=== PATIENT | female | born 1965 | race Hispanic/Latino ===

== ENCOUNTER 2017-01-02 09:31 | Day surgery (SDC) | payer BC ==
[2017-01-02] MEDS ORDERED: Iohexol 350mgl/ml 50 ML ONE (09:40)
[2017-01-02] MEDS ORDERED: Iodixanol 320 mg/ml 150 ml Bottle IV ONE (09:40)
[2017-01-02] MEDS ORDERED: Lidocaine 2% Inj (20ml) ONE (09:40)
--- NOTE | 2017-01-02 09:55 | ED PDOC ---
Arrival/HPI - General Chief Complaint: Chest Pain Time Seen by Provider: 01/02/17 09:35 Historian: Patient - History of Present Illness Narrative History of Present Illness (Text): 01/02/17 09:42 Andres Alexandra is a 51 year old female, whose past medical history includes hypertension, CAD, DC, and code heart with angioplasty 3 yrs ago, who presents to the emergency department complaining of hypotension during stress test prior to arrival. Patient was undergoing her annual stress test when patient says she began to breath heavily while walking fast and her blood pressure dropped. Patient was sent to the emergency department for further evaluation. At present , patient is slightly dizzy but denies any chest pain or any other complaints at this time. Patient endorses that she is a former smoker. PMD: Dr. Jamison Prosthetic Technician: Dr. Rowell Time/Duration: Prior to Arrival Symptom Onset: Sudden Symptom Course: Improving Severity Level: Mild Activities at Onset: Significant (Routine Stress test) Context: Other (Cardologist's office) Past Medical History - Provider Review Nursing Documentation Reviewed: Yes - Reproductive Menopause: Yes - Cardiac Hx Cardiac Disorders: (DC 01/24/13) Hx Congestive Heart Failure: Yes (01/24/13) Hx DC: Yes Hx Hypertension: Yes - Musculoskeletal/Rheumatological Hx Falls: No - Psychiatric Hx Anxiety: Yes Hx Substance Use: No - Past Surgical History Past Surgical History: No Previous - Surgical History Hx Cardiac Catheterization: Yes (01/24/13) Hx Coronary Stent: Yes (x2 01/24/13) Other/Comment: Gastric sleeve surgery approximately 1 year ago. - Anesthesia Hx Anesthesia: Yes Hx Anesthesia Reactions: No Hx Malignant Hyperthermia: No - Suicidal Assessment Feels Threatened In Home Enviroment: No Family/Social History - Physician Review Nursing Documentation Reviewed: Yes Family/Social History: No Known Family HX Smoking Status: Smoker Currrent Status Unknown Hx Alcohol Use: No Hx Substance Use: No Hx Substance Use Treatment: No Allergies/Home Meds Allergies/Adverse Reactions: Allergies acetaminophen [From Percocet] Allergy (Verified 01/02/17 09:40) RASH coconut Allergy (Verified 01/02/17 09:40) ANGIOEDEMA meperidine HCl [From Demerol] Allergy (Verified 01/02/17 09:40) RASH oxycodone HCl [From Percocet] Allergy (Verified 01/02/17 09:40) RASH strawberry Allergy (Verified 01/02/17 09:40) ANGIOEDEMA Home Medications: Home Meds Medication Instructions Recorded Confirmed Aspirin [Ecotrin] 325 mg PO DAILY 12/05/15 01/02/17 Atorvastatin Calcium [Lipitor] 40 mg PO HS 12/05/15 01/02/17 Carvedilol [Coreg] 6.25 mg PO AMHS 12/05/15 01/02/17 Prasugrel HCl [Effient] 10 mg PO DAILY 01/01/16 01/02/17 Lansoprazole [Prevacid] 30 mg PO DAILY 01/02/17 01/02/17 Review of Systems - Review of Systems Constitutional: Other (hypotension). absent: Fevers Eyes: absent: Vision Changes ENT: absent: Hearing Changes Cardiovascular: absent: Chest Pain Gastrointestinal: absent: Abdominal Pain Genitourinary Female: absent: Dysuria, Urine Output Changes Musculoskeletal: absent: Arthralgias Neurological: absent: Headache, Dizziness Endocrine: absent: Diaphoresis Hemo/Lymphatic: absent: Adenopathy Psychiatric: absent: Depression Physical Exam Vital Signs Reviewed: Yes Vital Signs Temp Pulse Pulse Resp BP Pulse Ox 01/02/17 09:33 62 01/02/17 09:32 98.0 F 73 19 145/84 100 Temperature: Afebrile Blood Pressure: Normal Pulse: Regular Respiratory Rate: Normal Appearance: Positive for: Well-Appearing, Non-Toxic, Comfortable Pain Distress: None Mental Status: Positive for: Alert and Oriented X 3 - Systems Exam Head: Present: Atraumatic, Normocephalic Pupils: Present: PERRL Extroacular Muscles: Present: EOMI Conjunctiva: Present: Normal Mouth: Present: Moist Mucous Membranes Neck: Present: Normal Range of Motion Respiratory/Chest: Present: Clear to Auscultation, Good Air Exchange. No: Respiratory Distress, Accessory Muscle Use Cardiovascular: Present: Regular Rate and Rhythm, Normal S1, S2. No: Murmurs Abdomen: Present: Normal Bowel Sounds. No: Tenderness, Distention, Peritoneal Signs Back: Present: Normal Inspection Upper Extremity: Present: Normal Inspection. No: Cyanosis, Edema Lower Extremity: Present: Normal Inspection. No: Edema Neurological: Present: GCS=15, CN II-XII Intact, Speech Normal Skin: Present: Warm, Dry, Normal Color. No: Rashes Psychiatric: Present: Alert, Oriented x 3, Normal Insight, Normal Concentration Medical Decision Making ED Course and Treatment: 01/02/17 09:42 Impression: 51 year old female complaining of hypotension during stress prior to arrival. Differential Diagnosis included but are not limited to: Hypotension during stress test, concerned for ACS Plan: -- EKG -- Type and Screen -- Labs -- Patient is stable for transport to the medical lab director under Dr. Rowell. Prior Visits: Notes and results from previous visits were reviewed. Patient last seen in the ED on 12/05/15 for chest pain x 10 days. Patient was admittd to hospitalist care for further evaluation. Progress Notes: EKG: Ordered, reviewed, and independently interpreted the EKG. Rate : 62 BPM Rhythm : NSR Interpretation : T-wave inversion inferior lateral leads. ST elevation in V2, less than 1 mm. - Critical Care Critical Care Minutes: 30 minutes - Lab Interpretations Lab Results: 01/02/17 09:40 01/03/17 06:15 Lab Results 01/03/17 06:15: Sodium 139, Potassium 4.0, Chloride 106, Carbon Dioxide 27, Anion Gap 10, BUN 13, Creatinine 0.6, Est GFR ( Amer) > 60, Est GFR (Non- Af Amer) > 60, Random Glucose 81, Calcium 9.2, Total Bilirubin 0.6, AST 25, ALT 41, Alkaline Phosphatase 75, Total Protein 5.7 L, Albumin 3.4, Globulin 2.3, Albumin/Globulin Ratio 1.4 01/02/17 10:07: Sodium 138, Potassium 4.0, Chloride 99, Carbon Dioxide 30, Anion Gap 13, BUN 17, Creatinine 0.7, Est GFR ( Amer) > 60, Est GFR (Non- Af Amer) > 60, Random Glucose 84, Calcium 9.7, Magnesium 2.0, Total Bilirubin 0.7, AST 41 H, ALT 49, Alkaline Phosphatase 85, Lactate Dehydrogenase 502, Total Creatine Kinase 49, Troponin I < 0.01, Total Protein 7.1, Albumin 4.2, Globulin 3.0, Albumin/Globulin Ratio 1.4 01/02/17 09:40: PT 10.7, INR 0.99, APTT 25.5 01/02/17 09:40: WBC 9.8 D, RBC 4.43, Hgb 15.0, Hct 43.6, MCV 98.4, MCH 33.9, MCHC 34.4, RDW 13.2, Plt Count 243, MPV 9.8, Gran % 55.7, Lymph % (Auto) 35.3 H , [place] % (Auto) 6.7 H, Eos % (Auto) 2.0, Baso % (Auto) 0.3, Gran # 5.48, Lymph # 3.5 H, [place] # 0.7 H, Eos # 0.2, Baso # 0.03 - RAD Interpretation Radiology Orders: 01/03/17 08:45 CHEST W/CONTRAST [CT] Routine - Medication Orders Current Medication Orders: Aspirin (Aspirin Chewable) 81 mg PO DAILY [facility] Carvedilol (Coreg) 6.25 mg PO BID [facility] Last Admin: 01/02/17 17:44 Dose: 6.25 mg Prasugrel (Effient) 10 mg PO DAILY [facility] Discontinued Medications Aspirin (Aspirin) Confirm Administered Dose 325 mg .ROUTE .STK-MED ONE Stop: 01/02/17 10:10 Last Admin: 01/02/17 10:13 Dose: 325 mg Comments: PO per Dr. Rowell Atropine Sulfate (Atropine) Confirm Administered Dose 1 mg .ROUTE .STK-MED ONE Stop: 01/02/17 09:41 Last Admin: 01/02/17 10:53 Dose: Bivalirudin (Angiomax) Confirm Administered Dose 250 mg IV .STK-MED ONE Stop: 01/02/17 09:42 Last Admin: 01/02/17 10:53 Dose: Fentanyl (Fentanyl) Confirm Administered Dose 100 mcg .ROUTE .STK-MED ONE Stop: 01/02/17 10:17 Last Admin: 01/02/17 10:17 Dose: 100 mcg Comments: IV. 50 mcg @ [address] Rowell. 50 mcg @ [address] Rowell Heparin Sodium (Porcine) (Heparin 1000 Units/500 Ml Ns) Confirm Administered Dose 1,500 mls @ ud IV .STK-MED ONE Stop: 01/02/17 09:42 Sodium Chloride (Sodium Chloride 0.9%) 1,000 mls @ 100 mls/hr IV .Q10H [facility] Stop: 01/02/17 16:00 Last Admin: 01/02/17 11:41 Dose: 100 mls/hr Iodixanol (Visipaque) Confirm Administered Dose 150 ml IV .STK-MED ONE Stop: 01/02/17 09:41 Last Admin: 01/02/17 10:55 Dose: 150 ml Iodixanol (Visipaque 320 Mg/Ml 100 Ml) Confirm Administered Dose 100 ml IV .K- MED ONE Stop: 01/02/17 10:35 Last Admin: 01/02/17 10:57 Dose: Iohexol (Omnipaque 350mg/Ml 50 Ml) Confirm Administered Dose 50 ml .ROUTE .STK- MED ONE Stop: 01/02/17 09:41 Last Admin: 01/02/17 10:55 Dose: Iohexol (Omnipaque 350 100 Ml) Confirm Administered Dose 350 mg .ROUTE .ST-MED ONE Stop: 01/03/17 07:43 Lidocaine HCl (Lidocaine 2% 20ml Vial) Confirm Administered Dose 20 ml .ROUTE .STK-MED ONE Stop: 01/02/17 09:41 Last Admin: 01/02/17 10:29 Dose: 9 ml Comments: SC into right groin Midazolam HCl (Versed Inj) Confirm Administered Dose 2 mg .ROUTE .[facility]-MED ONE Stop: 01/02/17 10:17 Last Admin: 01/02/17 10:17 Dose: 2 mg Comments: IV by Dr. Rowell Midazolam HCl (Versed Inj) Confirm Administered Dose 2 mg .ROUTE .[facility]-MED ONE Stop: 01/02/17 10:25 Last Admin: 01/02/17 10:24 Dose: 2 mg Comments: IV per Dr. Rowell. 1 mg @ 1024 and 1 mg @ 1029 Pneumococcal Polyvalent Vaccine (Pneumovax 23 Vaccine) 0.5 ml IM .ONCE ONE Stop: 01/02/17 13:27 Disposition/Present on Arrival - Present on Arrival Any Indicators Present on Arrival: No History of DVT/PE: No History of Uncontrolled Diabetes: No Urinary Catheter: No History of Decub. Ulcer: No History Surgical Site Infection Following: None - Disposition Have Diagnosis and Disposition been Completed?: Yes Diagnosis: ACS (acute coronary syndrome) Disposition: HOSPITALIZED Disposition Time: 10:03 Patient Plan: Admission Condition: FAIR
[2017-01-02 09:56] LABS: BASO # 0.03 K/mm3 (0.0-2.0); BASO % 0.3 % (0.0-3.0); EOS # 0.2 (0.0-0.7); GRAN # 5.48 (1.4-6.5); GRAN % 55.7 % (50.0-68.0); LYMPH # 3.5 (1.2-3.4); LYMPH % 35.3 % (22.0-35.0); MEAN CELL VOLUME 98.4 fL (80.0-105.0); MEAN CORPUSCULAR HEMOGLOBIN 33.9 pg (25.0-35.0); MEAN CORPUSCULAR HGB CONC 34.4 g/dl (31.0-37.0); MEAN PLATELET VOLUME 9.8 fl (7.0-11.0); MONO # 0.7 (0.1-0.6); MONO % 6.7 % (1.0-6.0); PLATELET COUNT 243 10^3/uL (120.0-450.0); RBC 4.43 10^6/uL (3.5-6.1); RED CELL DISTRIBUTION WIDTH 13.2 % (11.5-14.5); WHITE BLOOD COUNT 9.8 10^3/ul (4.5-11.0)
[2017-01-02 10:05] LABS: INR 0.99 (0.93-1.08); PARTIAL THROMBOPLASTIN TIME 25.5 Seconds (23.7-30.8); PROTHROMBIN TIME 10.7 Seconds (9.9-11.8)
[2017-01-02] MEDS ORDERED: Midazolam 2 MG/2 ML VIAL ONE ×2 (10:16→10:24)
[2017-01-02 10:25] LABS: ALB/GLOB RATIO 1.4 (1.1-1.8); ALBUMIN 4.2 g/dL (3.0-4.8); ALT/SGPT 49 U/L (7-56); AST/SGOT 41 U/L (15-39); BLOOD UREA NITROGEN 17 mg/dL (7-21); CALCIUM 9.7 mg/dL (8.4-10.5); GFR AFRICAN-AMERICAN > 60; GFR NON-AFRICAN AMERICAN > 60
[2017-01-02] MEDS ORDERED: Iodixanol 320 MG/ML 100 ML BOTTLE IV ONE (10:34)
[2017-01-02 10:37] LABS: TROPONIN I < 0.01 ng/mL
[2017-01-02] MEDS ORDERED: Sodium Chloride 0.9% 1,000 ML IV SCH (10:45)
[2017-01-02 13:26] VITALS: BMI 31.1
[2017-01-02] MEDS ORDERED: Pneumococcal 23-Valent Vaccine IM ONE (13:26)
--- NOTE | 2017-01-02 13:42 | CARDCATH ---
PROCEDURE DATE: 01/02/2017 CARDIAC CATHETERIZATION HISTORY: The patient is a 51-year-old woman who presents with progressive exertional shortness of breath and back pain over the past 2 weeks. These symptoms are consistent with her previous symptoms during her anterior wall myocardial infarction. The patient's past medical history is notable for hypercholesterolemia as well as her previous PTCA and stent of an LAD for acute anterior wall myocardial infarction. During her stress test, the patient became dyspneic with dizziness, hypotension and back pain. The symptoms were consistent with left main disease versus triple vessel CAD. The patient was sent to the emergency room because of this and brought up for urgent cardiac catheterization. PROCEDURE: Left heart catheterization with and left ventriculogram. The right femoral artery was cannulated with a 6-Belarusian sheath. There were no complications. The findings on catheterization revealed left main artery that was unremarkable. The LAD in its proximal portion to midportion revealed patent stents with no significant disease. Diagonal vessels were free of significant disease. The circumflex artery revealed a subtotally occluded AV groove branch of the circumflex which is old and unchanged from her previous catheterization 1 year ago. RCA was the dominant vessel found to have intimal irregularities without significant stenosis. Left ventriculogram revealed mild anterior wall hypokinesis with an estimated ejection fraction approximately 50%. Manual compression was used to close the femoral artery site. The patient tolerated the procedure well. In summary, the procedure revealed patent stent in the LAD, chronic subtotally occluded disease of an obtuse marginal branch which is old consistent with single vessel CAD. LV function revealed an old anterior wall [place] with an EF of 50%. Given these findings, the patient's symptoms are not from new ischemic coronary lesions. We will admit the patient overnight and checked the creatinine given the contrast therapy. If her creatinine is okay, we will obtain a CT scan to rule out aortic disease. Satnam Rowell MD
[2017-01-03 06:17] VITALS: TEMP 98.4; O2SAT 98
[2017-01-03 07:17] LABS: ALB/GLOB RATIO 1.4 (1.1-1.8); ALBUMIN 3.4 g/dL (3.0-4.8); ALT/SGPT 41 U/L (7-56); AST/SGOT 25 U/L (15-39); BLOOD UREA NITROGEN 13 mg/dL (7-21); CALCIUM 9.2 mg/dL (8.4-10.5); GFR AFRICAN-AMERICAN > 60; GFR NON-AFRICAN AMERICAN > 60
[2017-01-03] MEDS ORDERED: Iohexol 350 MG/100 ML VIAL ONE (07:42)
--- NOTE | 2017-01-03 08:42 | CARD ---
APPROVED REPORT EKG Measurement Heart [id number] <Conclusion> Normal sinus rhythm Rightward axis Incomplete right bundle branch block - new Possible Anteroseptal infarct, age undetermined T wave abnormality, consider inferior ischemia, new
--- NOTE | 2017-01-03 09:43 | CT ---
PROCEDURE: CT Chest with contrast HISTORY: chest pain COMPARISON: 07/04/2014 TECHNIQUE: Contiguous axial images were obtained through the chest with intravenous contrast enhancement. Sagittal and coronal reconstructions were performed. IV contrast: 100 cc of Omni 350 Radiation dose (DLP): 383 mGy-cm. This CT exam was performed using one or more of the following dose reduction techniques: Automated exposure control, adjustment of the mA and/or kV according to patient size, and/or use of iterative reconstruction technique. FINDINGS: LUNGS: Clear lungs. Visualized airway clear. MEDIASTINUM: Unremarkable thoracic aorta. No aneurysm or dissection. Normal sized heart. Main pulmonary artery unremarkable. No vascular congestion. No lymphadenopathy. PLEURA: No pleural fluid. No pneumothorax. BONES: No fracture. No destructive lesion. UPPER ABDOMEN: Grossly unremarkable. OTHER FINDINGS: Coronary stent IMPRESSION: No evidence of aortic dissection or aneurysm
[2017-01-03 10:18] VITALS: BP 133/66; PULSE 64
--- NOTE | 2017-01-03 10:18 | PN ---
DATE: 01/03/2017 SUBJECTIVE: The patient is asymptomatic, feeling well. PHYSICAL EXAMINATION VITAL SIGNS: Blood pressure is 116/73, the heart rate is in the 60s, normal sinus rhythm. NECK: Negative JVD. LUNGS: Without rales. HEART: S1 and S2. EXTREMITIES: Without edema. LABORATORY DATA: Creatinine today was unchanged. CT scan of the chest revealed no disease of the aorta. The lung parenchyma is stable. IMPRESSION: 1. Status post catheterization which revealed patent stents in the LAD with a chronically occluded obtuse marginal branch of the circumflex artery. 2. History of an old anterior wall myocardial infarction. 3. Coronary artery disease. 4. Her exertional back pain is not due to aortic disease. No abnormalities are found in her lung parenchyma. Given these findings, I have discussed this with the patient in detail. Her tests as well as follow up have been discussed. The patient can be discharged today. Satnam Rowell MD
[2017-01-03 10:39] VITALS: RESP 18
== END 2017-01-03 11:36 | disposition home or self-care (01) ==
LOC: ED 09:31 → CATH 10:01 → 2RSO 11:16 → CATH 01-03 11:36
PROVIDERS: ATTEND Internal Medicine Cardiovascular Disease
DX: I25.10 Atherosclerotic heart disease of native coronary artery without angina pectoris (principal); I25.82 Chronic total occlusion of coronary artery; I10 Essential (primary) hypertension; E78.00 Pure hypercholesterolemia, unspecified; I25.2 Old myocardial infarction; Z95.1 Presence of aortocoronary bypass graft; Z79.82 Long term (current) use of aspirin
CPT/HCPCS: 36415; 71260; 80053 ×2; 82550; 83615; 83735; 84484; 85025; 85610; 85730; 93005; 93458; 99152; 99285; C1769; C2629; J1644; J2250; J3010; J7040 ×2; Q9967 ×2

== ENCOUNTER 2017-08-11 17:34 | Emergency (ER) | payer BC ==
[2017-08-11 17:59] VITALS: BP 130/67; PULSE 82; RESP 18; TEMP 98.5; O2SAT 100; BMI 30.4
--- NOTE | 2017-08-11 18:00 | ED PDOC ---
Arrival/HPI - General Time Seen by Provider: 08/11/17 17:50 Historian: Patient - History of Present Illness Narrative History of Present Illness (Text): 08/11/17 17:57 52 y/o female, pmh including htn/hyperlipidemia, post menopausal, allergic to percocet but not allergic to tylenol, c/o lt. sided headache and lower back pain s/p fall about 3 days ago against the bathtub. Pt. stated that she is taking baby dose aspirin each day, slipped in the bathroom about 3 days ago, hit the lt. sided head against the wall and hit the lower back on the floor, aching pain, no LOC, no change in vision, no numbness or tingling, no palpitation, no flank or rib injury, no hematuria, no numbness or tingling, no urinary or bowel incontinence or retention, no other medical or psychological complaints. Past Medical History - Provider Review Nursing Documentation Reviewed: Yes - Cardiac Hx Cardiac Disorders: ([place] 01/24/13) Hx Congestive Heart Failure: Yes (01/24/13) Hx FL: Yes Hx Hypertension: Yes - Musculoskeletal/Rheumatological Hx Falls: No - Genitourinary/Gynecological Hx Genitourinary Disorders: (dense breasts) - Psychiatric Hx Anxiety: Yes Hx Substance Use: No - Past Surgical History Past Surgical History: No Previous - Surgical History Hx Cardiac Catheterization: Yes (01/24/13) Hx Coronary Stent: Yes (x2 01/24/13) Other/Comment: Gastric sleeve surgery approximately 1 year ago. - Anesthesia Hx Anesthesia: Yes Hx Anesthesia Reactions: No Hx Malignant Hyperthermia: No - Suicidal Assessment Feels Threatened In Home Enviroment: No Family/Social History - Physician Review Nursing Documentation Reviewed: Yes Family/Social History: Unknown Family HX Smoking Status: Smoker Currrent Status Unknown Hx Alcohol Use: No Hx Substance Use: No Hx Substance Use Treatment: No Allergies/Home Meds Allergies/Adverse Reactions: Allergies acetaminophen [From Percocet] Allergy (Verified 01/02/17 09:40) RASH coconut Allergy (Verified 01/02/17 09:40) ANGIOEDEMA meperidine HCl [From Demerol] Allergy (Verified 01/02/17 09:40) RASH oxycodone HCl [From Percocet] Allergy (Verified 01/02/17 09:40) RASH strawberry Allergy (Verified 01/02/17 09:40) ANGIOEDEMA Home Medications: Home Meds Medication Instructions Recorded Confirmed Aspirin [Ecotrin] 81 mg PO DAILY 12/05/15 01/03/17 Atorvastatin Calcium [Lipitor] 40 mg PO HS 12/05/15 01/02/17 Carvedilol [Coreg] 6.25 mg PO AMHS 12/05/15 01/03/17 Prasugrel HCl [Effient] 10 mg PO DAILY 01/01/16 01/03/17 Lansoprazole [Prevacid] 30 mg PO DAILY 01/02/17 01/02/17 Review of Systems - Review of Systems Constitutional: absent: Fatigue, Fevers Eyes: absent: Vision Changes ENT: absent: Hearing Changes Respiratory: absent: SOB, Cough Cardiovascular: absent: Chest Pain Gastrointestinal: absent: Abdominal Pain, Nausea, Vomiting Musculoskeletal: Back Pain. absent: Arthralgias, Neck Pain, Joint Swelling, Myalgias Neurological: absent: Headache Psychiatric: absent: Anxiety, Depression Physical Exam Vital Signs Reviewed: Yes Vital Signs Temp Pulse Resp BP Pulse Ox 08/11/17 17:53 98.5 F 82 18 130/67 100 Temperature: Afebrile Blood Pressure: Normal Pulse: Regular Respiratory Rate: Normal Appearance: Positive for: Well-Appearing, Non-Toxic, Comfortable Pain Distress: Mild Mental Status: Positive for: Alert and Oriented X 3 - Systems Exam Head: Present: Atraumatic, Normocephalic, Tenderness (+ttp on the lt. parietal region). No: Contusion, Swelling, Ecchymosis, Abrasion, Laceration Pupils: Present: PERRL Extroacular Muscles: Present: EOMI Conjunctiva: Present: Normal Mouth: Present: Moist Mucous Membranes Neck: Present: Normal Range of Motion, Trachea Midline. No: Meningeal Signs, MIDLINE TENDERNESS, Paraspinal Tenderness, Lymphadenopathy Respiratory/Chest: Present: Clear to Auscultation, Good Air Exchange. No: Respiratory Distress, Accessory Muscle Use Cardiovascular: Present: Regular Rate and Rhythm, Normal S1, S2. No: Murmurs Abdomen: Present: Normal Bowel Sounds. No: Tenderness, Distention, Peritoneal Signs, Rebound, Guarding Back: Present: Normal Inspection, Paraspinal Tenderness (LS spine: +ttp on the lt. paraspine on the lumbar region, no step off, FROM without limitation, sensation intact, motor 5/5, SLR test negative, bruising noted on the lt. gluteal region. ). No: CVA Tenderness, Midline Tenderness, Pain with Leg Raise , Decubitus Ulcer Upper Extremity: Present: Normal Inspection. No: Cyanosis, Edema Lower Extremity: Present: Normal Inspection. No: Edema Neurological: Present: GCS=15, CN II-XII Intact, Speech Normal, Motor Func Grossly Intact, Gait Normal, Memory Normal Skin: Present: Warm, Dry, Normal Color. No: Rashes Psychiatric: Present: Alert, Oriented x 3, Normal Insight, Normal Concentration Medical Decision Making ED Course and Treatment: 08/11/17 18:05 -CT head/lumbar -Tylenol/lidoderm patch -Observe and reassess 08/11/17 18:48 -CT Head: No intracranial hemorrhage. -CT Lumbar: No acute findings with respect to the lumbar spine and paravertebral structures. Degenerative changes L4-5 and L5-S1. Soft tissue injury extending from the cutaneous and subcutaneous soft tissues to the left gluteal muscles. No acute osseous abnormality identified. -Pt. feels well, no focal neurological deficits, will discharge home. -Discharge home with lidoderm patch, tylenol, ice compression, follow up with your own pmd and orthopedic within 2 days, return to the ER for any new or worsening signs or symptoms. - RAD Interpretation Radiology Orders: 08/11/17 17:55 HEAD W/O CONTRAST [CT] Stat LUMBAR SPINE W/O CONTRAST [CT] Stat CT Head: HEMORRHAGE: No intracranial hemorrhage. BRAIN: No mass effect or edema. Scattered white matter hypodensities, which are nonspecific, but often seen with chronic microvascular ischemic disease. Please note that MRI with diffusion imaging is more sensitive in the detection of acute ischemic event. VENTRICLES: No hydrocephalus. CALVARIUM: Unremarkable. PARANASAL SINUSES: Unremarkable as visualized. No significant inflammatory changes. MASTOID AIR CELLS: Unremarkable as visualized. No inflammatory changes. OTHER FINDINGS: None. IMPRESSION: Nonspecific white matter changes. ------- CT Lumbar: VERTEBRAE: Unremarkable. No fracture. Normal alignment. DISCS/SPINAL CANAL/NEURAL FORAMINA: L1-2: Unremarkable. L2-3: Unremarkable. L3-4: Unremarkable. L4-5: Narrowing of the spinal canal borderline canal stenosis. L5-S1: Degenerative changes primarily disc space narrowing and hypertrophic bar formation PARASPINAL SOFT TISSUES: Unremarkable. OTHER FINDINGS: Prominence that cutaneous and subcutaneous soft tissues to the left of the midline extending from the skin surface to the gluteal muscles, likely the sequela of direct trauma and representing hemorrhage. The findings do not extend more medially for 2 more deeply situated structures. IMPRESSION: No acute findings with respect to the lumbar spine and paravertebral structures. Degenerative changes L4-5 and L5-S1. Soft tissue injury extending from the cutaneous and subcutaneous soft tissues to the left gluteal muscles. No acute osseous abnormality identified. Smoke Eater: Radiologist - Medication Orders Current Medication Orders: Discontinued Medications Acetaminophen (Tylenol 325mg Tab) 650 mg PO STAT STA Stop: 08/11/17 18:02 Lidocaine (Lidoderm) 1 ea TD STAT STA Stop: 08/11/17 18:03 - PA / [employer]INE OPERATOR / Resident Statement / has reviewed & agrees with the documentation as recorded. Disposition/Present on Arrival - Present on Arrival Any Indicators Present on Arrival: No History of DVT/PE: No History of Uncontrolled Diabetes: No Urinary Catheter: No History of Decub. Ulcer: No History Surgical Site Infection Following: None - Disposition Have Diagnosis and Disposition been Completed?: Yes Diagnosis: Accidental fall, Head injury, closed, without LOC, Contusion, Degenerative joint disease (DJD) of lumbar spine Disposition: HOME/ ROUTINE Disposition Time: 18:05 Patient Plan: Discharge Condition: GOOD Additional Instructions: -Discharge home with lidoderm patch, tylenol, ice compression, follow up with your own pmd and orthopedic within 2 days, return to the ER for any new or worsening signs or symptoms. Prescriptions: Acetaminophen [Tylenol 325mg tab] 2 tab PO QID PRN #30 tab PRN Reason: Other Lidocaine 5% [Lidoderm] 1 patch TOP DAILY PRN #14 patch PRN Reason: Other Referrals: [employer], [Primary Care Provider] - Follow up with primary Iliana Almeida MD [Staff Provider] - Follow up with primary Forms: WORK NOTE
[2017-08-11] MEDS ORDERED: Lidocaine 5% Patch TD STA (18:02)
--- NOTE | 2017-08-11 18:27 | CT ---
PROCEDURE: CT HEAD WITHOUT CONTRAST. HISTORY: fall x 3 days, injury, on aspirin COMPARISON: None available. TECHNIQUE: Axial computed tomography images were obtained through the head/brain without intravenous contrast. Radiation dose: Total exam DLP = 1025.32 MGy-cm. This CT exam was performed using one or more of the following dose reduction techniques: Automated exposure control, adjustment of the mA and/or kV according to patient size, and/or use of iterative reconstruction technique. FINDINGS: HEMORRHAGE: No intracranial hemorrhage. BRAIN: No mass effect or edema. Scattered white matter hypodensities, which are nonspecific, but often seen with chronic microvascular ischemic disease. Please note that MRI with diffusion imaging is more sensitive in the detection of acute ischemic event. VENTRICLES: No hydrocephalus. CALVARIUM: Unremarkable. PARANASAL SINUSES: Unremarkable as visualized. No significant inflammatory changes. MASTOID AIR CELLS: Unremarkable as visualized. No inflammatory changes. OTHER FINDINGS: None. IMPRESSION: Nonspecific white matter changes.
--- NOTE | 2017-08-11 18:36 | CT ---
PROCEDURE: CT Lumbar Spine without contrast HISTORY: fall x 3 days, injury, on aspirin COMPARISON: None. TECHNIQUE: Axial computed tomography images were obtained of the lumbar spine without the use of intravenous contrast. Coronal and sagittal reformatted images were created and reviewed. Radiation dose: Total exam DLP = 1271.87 mGy-cm. This CT exam was performed using one or more of the following dose reduction techniques: Automated exposure control, adjustment of the mA and/or kV according to patient size, and/or use of iterative reconstruction technique. FINDINGS: VERTEBRAE: Unremarkable. No fracture. Normal alignment. DISCS/SPINAL CANAL/NEURAL FORAMINA: L1-2: Unremarkable. L2-3: Unremarkable. L3-4: Unremarkable. L4-5: Narrowing of the spinal canal borderline canal stenosis. L5-S1: Degenerative changes primarily disc space narrowing and hypertrophic bar formation PARASPINAL SOFT TISSUES: Unremarkable. OTHER FINDINGS: Prominence that cutaneous and subcutaneous soft tissues to the left of the midline extending from the skin surface to the gluteal muscles, likely the sequela of direct trauma and representing hemorrhage. The findings do not extend more medially for 2 more deeply situated structures. IMPRESSION: No acute findings with respect to the lumbar spine and paravertebral structures. Degenerative changes L4-5 and L5-S1. Soft tissue injury extending from the cutaneous and subcutaneous soft tissues to the left gluteal muscles. No acute osseous abnormality identified.
== END 2017-08-11 19:18 | disposition home or self-care (01) ==
LOC: ED 17:34
DX: S09.90XA Unspecified injury of head, initial encounter (principal); W01.0XXA Fall on same level from slipping, tripping and stumbling without subsequent striking against object, initial encounter; Y92.002 Bathroom of unspecified non-institutional (private) residence as the place of occurrence of the external cause; M47.896 Other spondylosis, lumbar region

== ENCOUNTER 2018-02-08 14:28 | Inpatient (IN) | payer BC ==
[2018-02-08 14:44] VITALS: BMI 32.8
[2018-02-08] MEDS ORDERED: Nitroglycerin 2% Ointment Foilpak UD TOP STA (14:57)
--- NOTE | 2018-02-08 15:02 | ED PDOC ---
Arrival/HPI - General Chief Complaint: Chest Pain Time Seen by Provider: 02/08/18 14:40 Historian: Patient - History of Present Illness Narrative History of Present Illness (Text): 02/08/18 14:59 52-year-old female with a history of CAD/ND presents today with intermittent chest pressure. Patient states last night she noticed some pressure in the chest but went to sleep. Patient states today the pressure in the chest has been intermittent. She denies nausea vomiting diarrhea or constipation today but states she was feeling nauseous last night. She denies abdominal pain. Denies headaches dizziness or weakness. Patient states symptoms are different from when she had the heart attack last time. Patient states last time she had no symptoms. Patient describes an intermittent and tingling sensation in the hands bilaterally. She denies numbness weakness or tingling in the lower extremities. Patient describes the discomfort in the back but but denies any radiation of pain to the back. Patient states she feels as if there is someone sitting on her chest. Past Medical History - Provider Review Nursing Documentation Reviewed: Yes - Travel History Have you recently traveled outside [place] w/in the past 3 mons?: No - Infectious Disease Hx of Infectious Diseases: None - Reproductive Menopause: Yes - Cardiac Hx Cardiac Disorders: (ND 01/24/13) Hx Congestive Heart Failure: Yes (01/24/13) Hx ND: Yes Hx Hypertension: Yes Other/Comment: cardiac stent - Pulmonary Hx Respiratory Disorders: No - Neurological Hx Neurological Disorder: No - HEENT Hx HEENT Disorder: No - Renal Hx Renal Disorder: No - Endocrine/Metabolic Hx Endocrine Disorders: No - Hematological/Oncological Hx Blood Disorders: No - Integumentary Hx Dermatological Disorder: No - Musculoskeletal/Rheumatological Hx Falls: No - Gastrointestinal Hx Gastrointestinal Disorders: No - Genitourinary/Gynecological Hx Genitourinary Disorders: (dense breasts) - Psychiatric Hx Anxiety: Yes Hx Substance Use: No - Past Surgical History Past Surgical History: No Previous - Surgical History Hx Cardiac Catheterization: Yes (01/24/13) Hx Coronary Stent: Yes (x2 01/24/13) Other/Comment: Gastric sleeve surgery approximately 1 year ago. - Anesthesia Hx Anesthesia: Yes Hx Anesthesia Reactions: No Hx Malignant Hyperthermia: No - Suicidal Assessment Feels Threatened In Home Enviroment: No Family/Social History - Physician Review Nursing Documentation Reviewed: Yes Family/Social History: Unknown Family HX Smoking Status: Never Smoked Hx Alcohol Use: No Hx Substance Use: No Hx Substance Use Treatment: No Allergies/Home Meds Allergies/Adverse Reactions: Allergies acetaminophen [From Percocet] Allergy (Verified 01/02/17 09:40) RASH coconut Allergy (Verified 01/02/17 09:40) ANGIOEDEMA meperidine HCl [From Demerol] Allergy (Verified 01/02/17 09:40) RASH oxycodone HCl [From Percocet] Allergy (Verified 01/02/17 09:40) RASH strawberry Allergy (Verified 01/02/17 09:40) ANGIOEDEMA Home Medications: Home Meds Medication Instructions Recorded Confirmed Aspirin [Ecotrin] 81 mg PO DAILY 12/05/15 01/03/17 Atorvastatin Calcium [Lipitor] 40 mg PO HS 12/05/15 01/02/17 Carvedilol [Coreg] 6.25 mg PO AMHS 12/05/15 01/03/17 Prasugrel HCl [Effient] 10 mg PO DAILY 01/01/16 01/03/17 Lansoprazole [Prevacid] 30 mg PO DAILY 01/02/17 01/02/17 Review of Systems - Review of Systems Constitutional: absent: Fatigue, Fevers Respiratory: absent: SOB, Cough Cardiovascular: Chest Pain. absent: Palpitations Gastrointestinal: Nausea. absent: Abdominal Pain, Vomiting Genitourinary Female: absent: Dysuria, Frequency, Hematuria Musculoskeletal: Back Pain. absent: Arthralgias, Neck Pain Skin: absent: Rash, Pruritis Neurological: absent: Headache, Dizziness Psychiatric: absent: Anxiety, Depression Physical Exam Vital Signs Temp Pulse Resp BP Pulse Ox 02/08/18 14:29 98.2 F 66 16 143/95 H 99 Temperature: Afebrile Blood Pressure: Hypertensive Pulse: Regular Respiratory Rate: Normal Appearance: Positive for: Well-Appearing, Non-Toxic, Comfortable Pain Distress: None Mental Status: Positive for: Alert and Oriented X 3 - Systems Exam Head: Present: Atraumatic Mouth: Present: Moist Mucous Membranes Neck: Present: Normal Range of Motion Respiratory/Chest: Present: Clear to Auscultation, Good Air Exchange. No: Respiratory Distress, Accessory Muscle Use Cardiovascular: Present: Regular Rate and Rhythm, Normal S1, S2. No: Murmurs, Tachycardic Abdomen: No: Tenderness, Distention, Rebound, Guarding Back: Present: Normal Inspection. No: Midline Tenderness, Paraspinal Tenderness Upper Extremity: Present: Normal ROM Lower Extremity: Present: Normal ROM Neurological: Present: GCS=15, Speech Normal Skin: Present: Warm, Dry, Normal Color. No: Rashes Psychiatric: Present: Alert, Oriented x 3 Medical Decision Making ED Course and Treatment: 02/08/18 15:03 pt with hx of cad, hypertension, ND; presenting with Chest pain, intermittent since last night. vitals stable. slightly hypertensive. pt is alert and oriented speaking in full sentences in no distress. cbc; wnl cmp; wnl trop: wnl ekg; NSR at 74b/m no st elevations, left axis deviation, qtc: 424 cxr: wnl pt given nitro paste; pt with improvement in symptoms; still with slight pressure in chest. asa 325mg given. pt on 2L Nasal cannula. case discussed with Dr. Woodruff will Admit observational status to Tele for chest pain r/o acs. all aspects of this case were discussed the attending of record. impression; chest pain Admit observational status to tele - Lab Interpretations Lab Results: 02/08/18 14:58 02/08/18 14:58 Lab Results 02/08/18 14:58: Sodium 139, Potassium 3.7, Chloride 104, Carbon Dioxide 28, Anion Gap 11, BUN 16, Creatinine 0.6 L, Est GFR ( Amer) > 60, Est GFR ( Non-Af Amer) > 60, Random Glucose 101, Calcium 9.5, Magnesium 2.1, Total Bilirubin 0.4, AST 36, ALT 35, Alkaline Phosphatase 90, Lactate Dehydrogenase 471, Total Creatine Kinase 78, Troponin I < 0.01, Total Protein 7.0, Albumin 4.3 , Globulin 2.7, Albumin/Globulin Ratio 1.6 02/08/18 14:58: WBC 8.3, RBC 4.15, Hgb 13.8, Hct 40.0, MCV 96.4, MCH 33.3, MCHC 34.5, RDW 13.1, Plt Count 280, MPV 10.1, Gran % 37.6 L, Lymph % (Auto) 54.9 H, [place] % (Auto) 5.6, Eos % (Auto) 1.7, Baso % (Auto) 0.2, Gran # 3.13, Lymph # ( Auto) 4.6 H, [place] # (Auto) 0.5, Eos # (Auto) 0.1, Baso # (Auto) 0.02 - RAD Interpretation Radiology Orders: 02/08/18 14:56 CHEST PORTABLE [RAD] Stat - Medication Orders Current Medication Orders: Discontinued Medications Aspirin (Aspirin) 325 mg PO STAT STA Stop: 02/08/18 15:52 Nitroglycerin (Nitro-Bid 2% Oint) 1 ea TOP STAT STA Stop: 02/08/18 14:58 Last Admin: 02/08/18 15:12 Dose: 1 ea Disposition/Present on Arrival - Present on Arrival Any Indicators Present on Arrival: No History of DVT/PE: No History of Uncontrolled Diabetes: No Urinary Catheter: No History of Decub. Ulcer: No History Surgical Site Infection Following: None - Disposition Have Diagnosis and Disposition been Completed?: Yes Diagnosis: Chest pain Disposition: HOSPITALIZED Disposition Time: 15:56 Patient Plan: Observation Patient Problems: Current Active Problems Problem Status Onset Chest pain Acute Condition: FAIR Discharge Instructions (ExitCare): Chest Pain (ED) Referrals: Lizandro Jamison MD [Primary Care Provider] - Follow up with primary Forms: [employer] (Kiswahili)
[2018-02-08 15:14] LABS: BASO # 0.02 K/mm3 (0.0-2.0); BASO % 0.2 % (0.0-3.0); EOS # 0.1 (0.0-0.7); EOS % 1.7 % (1.5-5.0); GRAN # 3.13 (1.4-6.5); GRAN % 37.6 % (50.0-68.0); HEMOGLOBIN 13.8 g/dL (12.0-16.0); LYMPH # 4.6 (1.2-3.4); LYMPH % 54.9 % (22.0-35.0); MEAN CELL VOLUME 96.4 fl (80.0-105.0); MEAN CORPUSCULAR HEMOGLOBIN 33.3 pg (25.0-35.0); MEAN CORPUSCULAR HGB CONC 34.5 g/dl (31.0-37.0); MEAN PLATELET VOLUME 10.1 fl (7.0-11.0); MONO # 0.5 (0.1-0.6); MONO % 5.6 % (1.0-6.0); RBC 4.15 10^6/uL (3.5-6.1); RED CELL DISTRIBUTION WIDTH 13.1 % (11.5-14.5); WHITE BLOOD COUNT 8.3 10^3/ul (4.5-11.0)
[2018-02-08 15:15] LABS: ALB/GLOB RATIO 1.6 (1.1-1.8); ALBUMIN 4.3 g/dL (3.0-4.8); ALT/SGPT 35 U/L (7-56); AST/SGOT 36 U/L (14-36); BLOOD UREA NITROGEN 16 mg/dL (7-21); CALCIUM 9.5 mg/dL (8.4-10.5); GFR NON-AFRICAN AMERICAN > 60
[2018-02-08 15:33] LABS: TROPONIN I < 0.01 ng/mL
[2018-02-08] MEDS ORDERED: Morphine 2 mg/ml ISec IVP PRN (17:32)
--- NOTE | 2018-02-08 17:32 | CP.PCM.HP ---
<Brady Chavez - Last Filed: 02/08/18 17:56> History of Present Illness - History of Present Illness History of Present Illness: Brady Chavez, PGY1 History and Physical for Dr. Woodruff Patient is a 52 y/o F with PMHx of HTN, AZ (5 years ago), CAD (multiple stents placed in the LAD; last cath 01/16) who presented to the ED on 02/08 for chest pain with associated lightheadedness. Patient had a pressure-like chest pain at night, took aspirin, it improved. During the morning her chest pain returned, prompting her to come to the ED. In the ED, patient had a CXR done and negative troponin x1. Patient was given aspirin and nitroglycerin patch for pain relief. Vital signs are stable. Patient is saturating well on nasal cannula, in no acute distress. Admission labs are currently unremarkable. Hospitalist team was consulted and patient was evaluated. Patient says that her chest pain is still present, even with the nitroglycerin patch. The chest pain is not associated with deep breaths. She also has numbness and tingling radiating down her left arm. She denies shortness of breath, blurred vision, nausea, vomiting, abdominal pain, changes in bowel/bladder, leg swelling/pain. 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 She last followed up with Dr. Rowell in Sep, 2017. She believes that there are about 3-4 stents placed in her LAD. Her AZ was approximately 5 years ago for when she had her first stent placed and her last cardiac cath was in 01/02/17 (diagnostic cath, no stents placed). Patient also says that her exercise tolerance has decreased in the past few months; she was able to walk approximately one mile before but now she has difficulty. A full 12 point ROS was conducted and unremarkable except as stated above. PMD: Lizandro Jamison PMHx: HTN, CAD (multiple stents in LAD; last cath 01/16), AZ (5 years ago) PSHx: gastric sleeve (4 years ago) Allergies: coconut, meperidine HCl, oxycodone HCl, strawberry Meds: Effient 10 mg PO daily, Lansoprazole 30 mg PO daily, Coreg 6.25 mg PO BID , Lipitor 40 mg PO HS, ASA 81 mg PO daily FHx: non-contributory SHx: former smoker (pack per day for 30 years), social drinker, denies recreational drug use. Present on Admission - Present on Admission Any Indicators Present on Admission: No History of DVT/PE: No History of Uncontrolled Diabetes: No Urinary Catheter: No Decubitus Ulcer Present: No Review of Systems - Review of Systems All systems: reviewed and no additional remarkable complaints except (as per HPI.) Past Patient History - Infectious Disease Hx of Infectious Diseases: None - Past Social History Smoking Status: Never Smoked - CARDIAC Hx Cardiac Disorders: (AZ 01/24/13) Hx Congestive Heart Failure: Yes (01/24/13) Hx Heart Attack: Yes Hx Hypertension: Yes Other/Comment: cardiac stent - PULMONARY Hx Respiratory Disorders: No - NEUROLOGICAL Hx Neurological Disorder: No - HEENT Hx HEENT Problems: No - RENAL Hx Chronic Kidney Disease: No - ENDOCRINE/METABOLIC Hx Endocrine Disorders: No - HEMATOLOGICAL/ONCOLOGICAL Hx Blood Disorders: No - INTEGUMENTARY Hx Dermatological Problems: No - MUSCULOSKELETAL/RHEUMATOLOGICAL Hx Falls: No - GASTROINTESTINAL Hx Gastrointestinal Disorders: No - GENITOURINARY/GYNECOLOGICAL Hx Genitourinary Disorders: (dense breasts) - PSYCHIATRIC Hx Anxiety: Yes Hx Substance Use: No - SURGICAL HISTORY Hx Cardiac Catheterization: Yes (01/24/13) Hx Coronary Stent: Yes (x2 01/24/13) Other/Comment: Gastric sleeve surgery approximately 1 year ago. - ANESTHESIA Hx Anesthesia: Yes Hx Anesthesia Reactions: No Hx Malignant Hyperthermia: No Meds Allergies/Adverse Reactions: Allergies Allergy/AdvReac Type Severity Reaction Status Date / Time coconut Allergy ANGIOEDEMA Verified 01/02/17 09:40 meperidine HCl [From Demerol] Allergy RASH Verified 01/02/17 09:40 oxycodone HCl [From Percocet] Allergy RASH Verified 01/02/17 09:40 strawberry Allergy ANGIOEDEMA Verified 01/02/17 09:40 Physical Exam - Constitutional Appears: No Acute Distress - Head Exam Head Exam: ATRAUMATIC, NORMAL INSPECTION, NORMOCEPHALIC - Eye Exam Eye Exam: EOMI, Normal appearance, PERRL Pupil Exam: NORMAL ACCOMODATION, PERRL - ENT Exam ENT Exam: Mucous Membranes Moist, Normal Exam Additional comments: Nasal cannula in place. No accessory muscle use. - Neck Exam Neck exam: Positive for: Normal Inspection - Respiratory Exam Respiratory Exam: Clear to Auscultation Bilateral, NORMAL BREATHING PATTERN. absent: Chest Wall Tenderness, Rales, Rhonchi, Wheezes, Respiratory Distress, Stridor - Cardiovascular Exam Cardiovascular Exam: REGULAR RHYTHM, +S1, +S2. absent: Systolic Murmur Additional comments: No chest wall tenderness with palpation. - GI/Abdominal Exam GI & Abdominal Exam: Normal Bowel Sounds, Soft. absent: Distended, Firm, Guarding, Rebound, Rigid, Tenderness - Extremities Exam Extremities exam: Positive for: full ROM, normal capillary refill, normal inspection, pedal pulses present. Negative for: calf tenderness, joint swelling , pedal edema, tenderness - Back Exam Back exam: NORMAL INSPECTION - Neurological Exam Neurological exam: Alert, CN II-XII Intact, Oriented x3 - Psychiatric Exam Psychiatric exam: Normal Affect, Normal Mood - Skin Skin Exam: Dry, Intact, Normal Color, Warm Results - Vital Signs Recent Vital Signs: Last Vital Signs Temp 97.8 F 02/08/18 16:58 Pulse 57 L 02/08/18 16:58 Resp 18 02/08/18 16:58 BP 133/88 02/08/18 16:58 Pulse Ox 98 02/08/18 16:58 - Labs Result Diagrams: 02/08/18 14:58 02/08/18 14:58 Labs: Laboratory Results - last 24 hr 02/08/18 02/08/18 14:58 14:58 WBC 8.3 RBC 4.15 Hgb 13.8 Hct 40.0 MCV 96.4 MCH 33.3 MCHC 34.5 RDW 13.1 Plt Count 280 MPV 10.1 Gran % 37.6 L Lymph % (Auto) 54.9 H [place] % (Auto) 5.6 Eos % (Auto) 1.7 Baso % (Auto) 0.2 Gran # 3.13 Lymph # (Auto) 4.6 H [place] # (Auto) 0.5 Eos # (Auto) 0.1 Baso # (Auto) 0.02 Sodium 139 Potassium 3.7 Chloride 104 Carbon Dioxide 28 Anion Gap 11 BUN 16 Creatinine 0.6 L Est GFR ( Amer) > 60 Est GFR (Non-Af Amer) > 60 Random Glucose 101 Calcium 9.5 Magnesium 2.1 Total Bilirubin 0.4 AST 36 ALT 35 Alkaline Phosphatase 90 Lactate Dehydrogenase 471 Total Creatine Kinase 78 Troponin I < 0.01 Total Protein 7.0 Albumin 4.3 Globulin 2.7 Albumin/Globulin Ratio 1.6 Assessment & Plan - Assessment and Plan (Free Text) Assessment: Patient is a 52 y/o F with PMHx of HTN, [place] (5 years ago), CAD (multiple stents placed in the LAD; last cath 01/16) who presented to the ED on 02/08 for chest pain with associated lightheadedness that occurred since last night. Patient was given aspirin and nitroglycerin in the ED without relief. Patient will be admitted to the floor for unstable angina and to rule out ACS. Plan: Unstable Angina - rule out ACS - Lovenox 80 mg SC q12H (dosed 1 mg/kg q12) for anticoagulation - ASA 81 mg - Tylenol 650 mg q6H prn for pain control; consider morphine if pain uncontrolled - no relief with nitroglycerin patch in the ED; vital signs stable - serial troponins - troponin negative x1 in ED - f/u routine EKG in the morning - EKG (ED): NSR at [address] elevations. Left axis deviation. - f/u CXR official read - c/w Nasal cannula; maintain SaO2 > 92% - Cardio consulted (Dr. Rowell), f/u recs - Patient has high cardiac risk factors: HTN, unstable angina, decreased exercise tolerance, and history of CAD with multiple stent placement. History of CAD (multiple stents) - c/w aspirin - Lipitor 40 mg PO HS - Lipid panel in morning - Last cath in 01/02/17: LAD with patent stents (no significant disease). - Echo (01/2016): 50% EF. Mild AI, MR, and TR. HTN - BP currently 118/64 - Coreg 6.25 mg PO BID Diet: HHD Dispo: Patient will be monitored on telemetry. Case was discussed and reviewed with Attending Physician, Dr. Woodruff. <Mateo Woodruff - Last Filed: 02/08/18 18:29> Results - Vital Signs Recent Vital Signs: Last Vital Signs Temp 97.8 F 02/08/18 17:26 Pulse 54 L 02/08/18 17:45 Resp 18 02/08/18 17:26 BP 133/65 02/08/18 17:45 Pulse Ox 98 02/08/18 16:58 - Labs Result Diagrams: 02/08/18 14:58 02/08/18 14:58 Attending/Attestation - Attestation I have personally seen and examined this patient.: Yes I have fully participated in the care of the patient.: Yes I have reviewed all pertinent clinical information: Yes Notes (Text): 02/08/18 18:26 Medical record note made by the resident after discussion with my direction and input after the patient was personally seen and examined by me. I have reviewed the chart and agree that the record accurately reflects by personal performance of the history, physical exam, data review, and medical decision-making, in the course for the patient. I have also personally directed the plan of care. 52 years old Female with PMHx of HTN, [place] (5 years ago), CAD (multiple stents placed in the LAD; last cath 01/16) who presented to the ED on 02/08 for chest pain .EKG is negative for acute ST Ischemic changes.We will admit patient in telemetry, we will get serial troponin, Continue ASA/Coreg/Lipitor and lovenox. We will also get cardiology consult. Management plan was discussed in detail with patient. Education was provided
[2018-02-08] MEDS: Enoxaparin 80 mg Syringe SC SCH (17:45)
--- NOTE | 2018-02-08 18:05 | RAD ---
Date of service: 02/08/2018 HISTORY: CP COMPARISON: Chest radiographs 06/22/2014. FINDINGS: LUNGS: No active pulmonary disease. PLEURA: No significant pleural effusion identified, no pneumothorax apparent. CARDIOVASCULAR: Mild cardiomegaly. No pulmonary vascular congestion. OSSEOUS STRUCTURES: No significant abnormalities. VISUALIZED UPPER ABDOMEN: Normal. OTHER FINDINGS: None. IMPRESSION: No interval acute cardiopulmonary disease appreciated. Mild cardiomegaly again evident without pulmonary vascular congestion.
[2018-02-09] MEDS: Enoxaparin 80 mg Syringe SC SCH ×2 (05:49→17:37)
[2018-02-09 06:27] LABS: HEMOGLOBIN 13.3 g/dL (12.0-16.0); MEAN CELL VOLUME 96.8 fl (80.0-105.0); MEAN CORPUSCULAR HEMOGLOBIN 32.9 pg (25.0-35.0); RBC 4.04 10^6/uL (3.5-6.1); RED CELL DISTRIBUTION WIDTH 13.2 % (11.5-14.5); WHITE BLOOD COUNT 7.1 10^3/ul (4.5-11.0)
[2018-02-09 06:42] LABS: LDL CHOLESTEROL 68 mg/dL (0-129); TROPONIN I < 0.01 ng/mL
[2018-02-09 06:46] LABS: ALB/GLOB RATIO 1.6 (1.1-1.8); ALBUMIN 3.7 g/dL (3.0-4.8); ALT/SGPT 35 U/L (7-56); AST/SGOT 27 U/L (14-36); BLOOD UREA NITROGEN 15 mg/dL (7-21); CALCIUM 9.5 mg/dL (8.4-10.5); GFR NON-AFRICAN AMERICAN > 60; HDL CHOLESTEROL 64 mg/dL (29-60)
--- NOTE | 2018-02-09 10:14 | CARD ---
APPROVED REPORT Date of service: 02/09/2018 EKG Measurement Heart [id number] <Conclusion> Normal sinus rhythm Left axis deviation Inferior infarct, age undetermined Anteroseptal infarct, age undetermined T wave abnormality, consider lateral ischemia Abnormal ECG
--- NOTE | 2018-02-09 13:33 | CON ---
DATE: 02/09/2018 CARDIOLOGY CONSULT REASON FOR CONSULTATION: Chest pain. HISTORY OF PRESENT ILLNESS: The patient is a 52-year-old female who has a history of coronary artery disease with history of coronary stenting in the past, according to the patient two stents in 2015 and one stent in 2015 presented because of chest heaviness. The patient drove herself to the hospital and the chest heaviness resolved after nitro paste applied in the Emergency Room. The patient denies any associated diaphoresis, dizziness or shortness of breath. REVIEW OF SYSTEMS: No diaphoresis, dizziness or syncope. No fever or chills. No productive cough. MEDICATIONS: Aspirin 81 mg once a day, Coreg 6.25 mg once a day, Lipitor 40 mg once a day, Lovenox 80 mg subcutaneously once a day. SOCIAL HISTORY: Nonsmoker. PHYSICAL EXAMINATION: GENERAL: The patient is middle-aged female who does not appear to be in any distress. VITAL SIGNS: Blood pressure 96/51, heart 75, temperature 98.1, respiration 20. HEENT: Normocephalic. NECK: No JVD. CHEST: Clear. HEART: Sounds regular. ABDOMEN: Soft. EXTREMITIES: No edema. DATA: Laboratories: Today's CBC: WBC 7.1, hemoglobin 15.3, hematocrit 39.1, platelet count 131,000. SMA-7: Sodium 140, potassium 4.2, chloride 106, CO2 29, glucose 85, BUN 15, creatinine 0.6. Three sets of troponins are negative. HDL cholesterol 64. The rest of lipid profile is within normal limit. Admitting EKG revealed sinus rhythm, old anteroseptal AR, heart rate 74, left axis deviation and repeat EKG revealed new lateral T-wave inversion. The most recent cardiac catheterization was in December of last year, which revealed patent LAD stent, old total occlusion of the circumflex, ejection fraction 50%. No significant right coronary artery disease at that time. ASSESSMENT: 1. Chest pain, myocardial infarction ruled out. 2. New lateral T-wave inversion. 3. History of coronary artery disease with patent left anterior descending artery stent and total occlusion of the circumflex artery. RECOMMENDATIONS: Continue aspirin 81 mg once a day, Coreg 6.25 mg twice a day, Lipitor 40 mg once a day, therapeutic subcutaneous Lovenox at 80 mg twice a day. I will discuss the case with Dr. Satnam Rowell tomorrow for possible cardiac catheterization and the patient will be started on Plavix at 75 mg daily. I will obtain PT and PTT. Bhavesh Vizcarra MD
[2018-02-09 14:16] LABS: INR 1.05; PARTIAL THROMBOPLASTIN TIME 39.1 Seconds (25.1-36.5)
--- NOTE | 2018-02-09 15:59 | CARD ---
APPROVED REPORT Date of service: 02/08/2018 EKG Measurement Heart [id number] <Conclusion> Normal sinus rhythm Left axis deviation Anteroseptal infarct, age undetermined Abnormal ECG
--- NOTE | 2018-02-09 16:22 | CP.PCM.PN ---
<Brady Chavze - Last Filed: 02/09/18 17:27> Subjective - Date & Time of Evaluation Date of Evaluation: 02/09/18 Time of Evaluation: 07:00 - Subjective Subjective: Brady Chavez PGY1 Medicine Progress Note for Dr. Goetz Patient was seen and examined at bedside this morning. No overnight changes. Vital signs stable. She denied chest pain, shortness of breath, numbness and tingling of the extremities, lightheadedness, dizziness, headache, abdominal pain, n/v/d. Patient said her chest pain was significantly improved. She will be evaluated by the copper plate printer after interview. A full 12 point ROS was conducted and unremarkable except as stated above. Objective - Vital Signs/Intake and Output Vital Signs (last 24 hours): Temp Pulse Resp BP Pulse Ox 98.1 F 51 L 18 128/81 94 L 02/09/18 12:00 02/09/18 12:00 02/09/18 12:00 02/09/18 12:00 02/09/18 05:52 - Medications Medications: Current Medications Acetaminophen (Tylenol 325mg Tab) 650 mg PO Q6H PRN PRN Reason: Pain, moderate (4-7) Last Admin: 02/09/18 06:26 Dose: 650 mg Aspirin (Aspirin Chewable) 81 mg PO DAILY [facility] Last Admin: 02/09/18 11:02 Dose: 81 mg Atorvastatin Calcium (Lipitor) 40 mg PO DIN [facility] Last Admin: 02/08/18 17:45 Dose: 40 mg Carvedilol (Coreg) 6.25 mg PO 0800,1800 [facility] Last Admin: 02/09/18 10:00 Dose: 6.25 mg Clopidogrel Bisulfate (Plavix) 75 mg PO DAILY [facility] Last Admin: 02/09/18 13:40 Dose: 75 mg Enoxaparin Sodium (Lovenox) 80 mg SC Q12H [facility] PRN Reason: Protocol Last Admin: 02/09/18 05:49 Dose: 80 mg - Labs Labs: PT 12.0 SECONDS (9.4-12.5) 02/09/18 13:30 INR 1.05 02/09/18 13:30 APTT 39.1 Seconds (25.1-36.5) H 02/09/18 13:30 - Constitutional Appears: Well - Head Exam Head Exam: ATRAUMATIC, NORMAL INSPECTION, NORMOCEPHALIC - Eye Exam Eye Exam: EOMI, Normal appearance, PERRL - ENT Exam ENT Exam: Mucous Membranes Moist, Normal Exam - Neck Exam Neck Exam: Full ROM, Normal Inspection. absent: Lymphadenopathy - Respiratory Exam Respiratory Exam: Clear to Ausculation Bilateral, NORMAL BREATHING PATTERN. absent: Rales, Rhonchi, Wheezes - Cardiovascular Exam Cardiovascular Exam: REGULAR RHYTHM, +S1, +S2. absent: Murmur - GI/Abdominal Exam GI & Abdominal Exam: Soft, Normal Bowel Sounds. absent: Tenderness - Extremities Exam Extremities Exam: Full ROM, Normal Capillary Refill, Normal Inspection. absent : Joint Swelling, Pedal Edema, Tenderness - Back Exam Back Exam: NORMAL INSPECTION - Neurological Exam Neurological Exam: Alert, Awake, Oriented x3 Neuro motor strength exam: Left Upper Extremity: 5, Right Upper Extremity: 5, Left Lower Extremity: 5, Right Lower Extremity: 5 - Psychiatric Exam Psychiatric exam: Normal Affect, Normal Mood - Skin Skin Exam: Dry, Intact, Normal Color, Warm Assessment and Plan - Assessment and Plan (Free Text) Assessment: Patient is a 52 y/o F with PMHx of HTN, [place] (5 years ago), CAD (multiple stents placed in the LAD; last cath 01/16) who presented to the ED on 02/08 for chest pain with associated lightheadedness that occurred since last night. Patient was given aspirin and nitroglycerin in the ED without relief. Patient was admitted to the floor for unstable angina and to rule out ACS. Patient's chest pain has improved since admission. She is pending cardiac evaluation. Plan: Unstable Angina - rule out ACS - Chest pain has improved today; vital signs stable. - EKG (02/09): NSR. T-wave inversion in lateral leads. - Although troponins negative x3, given new EKG findings and patient's high cardiac risk factors, patient may receive cardiac cath tomorrow. - Cardiac recs appreciated. - c/w Lovenox 80 mg SC q12H (dosed 1 mg/kg q12) for anticoagulation - c/w ASA 81 mg - d/c nitroglycerin patch - EKG (02/08): NSR at [address] elevations. Left axis deviation. - CXR (02/08): no cardiopulmonary disease. - Patient has high cardiac risk factors: HTN, unstable angina, decreased exercise tolerance, and history of CAD with multiple stent placement. History of CAD (multiple stents) - Lipid panel is within normal limits - c/w aspirin - c/w Lipitor 40 mg PO HS - Last cath in 01/02/17: LAD with patent stents (no significant disease). - Echo (01/2016): 50% EF. Mild AI, MR, and TR. HTN - BP currently 96/51 - c/w Coreg 6.25 mg PO BID Dispo: Patient will be monitored on telemetry. Case was discussed and reviewed with Attending Physician, Dr. Goetz. <Ping Goetz R - Last Filed: 02/10/18 17:33> Objective - Vital Signs/Intake and Output Vital Signs (last 24 hours): Temp Pulse Resp BP Pulse Ox 99 F 57 L 18 117/79 100 02/10/18 11:57 02/10/18 11:57 02/10/18 11:57 02/10/18 11:57 02/10/18 00:01 Intake and Output: 02/10/18 02/10/18 06:59 18:59 Intake Total 960 Balance 960 - Medications Medications: Current Medications Acetaminophen (Tylenol 325mg Tab) 650 mg PO Q6H PRN PRN Reason: Pain, moderate (4-7) Last Admin: 02/09/18 06:26 Dose: 650 mg Aspirin (Ecotrin) 81 mg PO DAILY [facility] Atorvastatin Calcium (Lipitor) 40 mg PO DIN [facility] Last Admin: 02/10/18 17:31 Dose: 40 mg Prasugrel (Effient) 10 mg PO DAILY [facility] - Labs Labs: 02/10/18 05:45 02/10/18 05:45 PT 12.0 SECONDS (9.4-12.5) 02/09/18 13:30 INR 1.05 02/09/18 13:30 APTT 39.1 Seconds (25.1-36.5) H 02/09/18 13:30 Attending/Attestation - Attestation I have personally seen and examined this patient.: Yes I have fully participated in the care of the patient.: Yes I have reviewed all pertinent clinical information, including history, physical exam and plan: Yes Notes (Text): Patient seen and examined by me at 09:35AM with resident 02/09/18. Case including HPI, physical exam, and assessment and plan discussed with resident. Agree with above with following additions/corrections. Patient is a 52-year-old female past medical history significant for hypertension and coronary artery disease status post multiple stents that presented to the emergency room with chest pain and associated lightheadedness. Patient states that she is feeling much better today. Chest pain has resolved. Tingling and numbness in the left arm has also resolved. Patient states that she has been recently getting short of breath with ambulation. Patient denies any current shortness of breath. No headaches or dizziness. No fevers or chills. No nausea, vomiting, or abdominal pain. No dysuria. No neck or back pain. Physical exam: Gen: Awake and alert lying in bed in no acute distress HEENT: Normocephalic, atraumatic. Extraocular muscles intact, pupils equal reactive. No scleral icterus. Oropharynx is pink and moist. Neck is supple. Cardiovascular: Normal rhythm. Normal S1, S2. No murmurs, rubs, or gallops appreciated Pulmonary: Normal respiratory effort. No rhonchi, rales, or wheezing appreciated. Gastrointestinal: Soft, nontender, non-distended. Positive bowel sounds all 4 quadrants, no guarding. Musculoskeletal: Normal range of motion all extremities. No calf tenderness. Trace lower extremity edema. Central nervous system: AAO x 3. CN 2-12 grossly intact Dermatologic: Skin warm and dry Assessment and plan: Patient is a 52-year-old female past medical history significant for hypertension and coronary artery disease status post multiple stents that presented to the emergency room with chest pain and associated lightheadedness. 1. Unstable angina in a patient with CAD. Rule out ACS. Chest pain resolved. Troponin within normal limits 3. Cardiology consulted, recommendations appreciated. Patient for possible cardiac catheterization. Continue therapeutic Lovenox. Continue aspirin. Patient started on Plavix. Continue with O2 via nasal cannula as needed. Continue Lipitor and Coreg. Chest x-ray per radiologist shows no interval acute cardiopulmonary disease, mild cardiomegaly again evident without pulmonary vascular congestion. Continue to monitor on telemetry. 2. Hypertension. Continue Coreg. 3. DVT prophylaxis. Lovenox Case was discussed in detail with the patient regarding current diagnosis and treatment plan.
[2018-02-10] MEDS: Enoxaparin 80 mg Syringe SC SCH (06:24)
[2018-02-10 06:42] LABS: HEMOGLOBIN 13.7 g/dL (12.0-16.0); MEAN CELL VOLUME 96.1 fl (80.0-105.0); MEAN CORPUSCULAR HEMOGLOBIN 33.1 pg (25.0-35.0); MEAN CORPUSCULAR HGB CONC 34.4 g/dl (31.0-37.0); RBC 4.14 10^6/uL (3.5-6.1); WHITE BLOOD COUNT 5.9 10^3/ul (4.5-11.0)
[2018-02-10 06:59] LABS: ALB/GLOB RATIO 1.5 (1.1-1.8); ALBUMIN 3.8 g/dL (3.0-4.8); ALT/SGPT 30 U/L (7-56); AST/SGOT 29 U/L (14-36); BLOOD UREA NITROGEN 13 mg/dL (7-21); CALCIUM 9.4 mg/dL (8.4-10.5); GFR NON-AFRICAN AMERICAN > 60
[2018-02-10] MEDS ORDERED: Iodixanol 320 MG/ML 200 ML BOTTLE IV ONE (12:16)
[2018-02-10] MEDS ORDERED: Iodixanol 320 MG/ML 100 ML BOTTLE IV ONE (12:16)
[2018-02-10] MEDS ORDERED: Midazolam 2 MG/2 ML VIAL ONE ×3 (12:16→12:50)
--- NOTE | 2018-02-10 13:34 | CP.PCM.PN ---
<Brady Chavez - Last Filed: 02/10/18 21:21> Subjective - Date & Time of Evaluation Date of Evaluation: 02/10/18 Time of Evaluation: 07:00 - Subjective Subjective: Brady Chavez PGY1 Medicine Progress Note for Dr. Goetz Patient was seen and examined at bedside this morning. No overnight changes. Patient denied chest pain, shortness of breath, lightheadedness, dizziness, nausea, vomiting, diarrhea. Her vital signs are stable. However, in light of her recent EKG findings, patient was explained that she is going for cardiac cath as per Dr. Rowell. A full 12 point ROS was conducted and unremarkable except as stated above. Objective - Vital Signs/Intake and Output Vital Signs (last 24 hours): Temp Pulse Resp BP Pulse Ox 99 F 57 L 18 117/79 100 02/10/18 11:57 02/10/18 11:57 02/10/18 11:57 02/10/18 11:57 02/10/18 00:01 Intake and Output: 02/10/18 02/10/18 06:59 18:59 Intake Total 960 Balance 960 - Medications Medications: Current Medications Acetaminophen (Tylenol 325mg Tab) 650 mg PO Q6H PRN PRN Reason: Pain, moderate (4-7) Last Admin: 02/09/18 06:26 Dose: 650 mg Aspirin (Aspirin Chewable) 81 mg PO DAILY [facility] Last Admin: 02/10/18 09:39 Dose: 81 mg Atorvastatin Calcium (Lipitor) 40 mg PO DIN [facility] Last Admin: 02/09/18 17:38 Dose: 40 mg Carvedilol (Coreg) 6.25 mg PO 0800,1800 [facility] Last Admin: 02/10/18 08:26 Dose: 6.25 mg Clopidogrel Bisulfate (Plavix) 75 mg PO DAILY [facility] Last Admin: 02/10/18 09:39 Dose: 75 mg Enoxaparin Sodium (Lovenox) 80 mg SC Q12H [facility] PRN Reason: Protocol Last Admin: 02/10/18 06:24 Dose: Not Given - Labs Labs: 02/10/18 05:45 02/10/18 05:45 PT 12.0 SECONDS (9.4-12.5) 02/09/18 13:30 INR 1.05 02/09/18 13:30 APTT 39.1 Seconds (25.1-36.5) H 02/09/18 13:30 - Constitutional Appears: Well, No Acute Distress - Head Exam Head Exam: ATRAUMATIC, NORMAL INSPECTION, NORMOCEPHALIC - Eye Exam Eye Exam: EOMI, Normal appearance, PERRL - ENT Exam ENT Exam: Mucous Membranes Moist, Normal Exam - Neck Exam Neck Exam: Full ROM, Normal Inspection. absent: Lymphadenopathy - Respiratory Exam Respiratory Exam: Clear to Ausculation Bilateral, NORMAL BREATHING PATTERN. absent: Rales, Rhonchi, Wheezes - Cardiovascular Exam Cardiovascular Exam: REGULAR RHYTHM, +S1, +S2. absent: Murmur - GI/Abdominal Exam GI & Abdominal Exam: Soft, Normal Bowel Sounds. absent: Tenderness - Extremities Exam Extremities Exam: Full ROM, Normal Capillary Refill, Normal Inspection. absent : Joint Swelling, Pedal Edema - Back Exam Back Exam: NORMAL INSPECTION - Neurological Exam Neurological Exam: Alert, Awake, Oriented x3 Neuro motor strength exam: Left Upper Extremity: 5, Right Upper Extremity: 5, Left Lower Extremity: 5, Right Lower Extremity: 5 - Skin Skin Exam: Dry, Intact, Normal Color, Warm Assessment and Plan - Assessment and Plan (Free Text) Assessment: Patient is a 52 y/o F with PMHx of HTN, [place] (5 years ago), CAD (multiple stents placed in the LAD; last cath 01/16) who presented to the ED on 02/08 for chest pain with associated lightheadedness that occurred since last night. Patient was given aspirin and nitroglycerin in the ED without relief. Patient was admitted to the floor for unstable angina and to rule out ACS. Patient's chest pain has improved since admission. She is undergoing cardiac cath today, as per cardiology. Plan: Unstable Angina - pending cardiac catheterization - Cardiac cath today as per Dr. Rowell; f/u results of cath - Post-Cath protocol - Repeat EKG findings suggestive of ischemia - EKG (02/09): NSR. T-wave inversion in lateral leads. - Chest pain resolved. Vital signs stable. - Although troponins negative x3, given new EKG findings and patient's high cardiac risk factors, patient will undergo cardiac cath. - Cardiac recs appreciated. - c/w Lovenox 80 mg SC q12H (dosed 1 mg/kg q12) for anticoagulation - c/w ASA 81 mg - EKG (02/08): NSR at [address] elevations. Left axis deviation. - CXR (02/08): no cardiopulmonary disease. - Patient has high cardiac risk factors: HTN, unstable angina, decreased exercise tolerance, and history of CAD with multiple stent placement. History of CAD (multiple stents) - Lipid panel is within normal limits - c/w aspirin - c/w Lipitor 40 mg PO HS - Last cath in 01/02/17: LAD with patent stents (no significant disease). - Echo (01/2016): 50% EF. Mild AI, MR, and TR. HTN - Normotensive - c/w Coreg 6.25 mg PO BID Dispo: Patient will undergo cardiac cath as per Cardiology. Case was discussed and reviewed with Attending Physician, Dr. Goetz. <Ping Goetz R - Last Filed: 02/11/18 14:32> Objective - Vital Signs/Intake and Output Vital Signs (last 24 hours): Temp Pulse Resp BP Pulse Ox 97.7 F 60 20 147/88 97 02/11/18 12:00 02/11/18 12:00 02/11/18 12:00 02/11/18 12:00 02/11/18 06:00 Intake and Output: 02/11/18 02/11/18 06:59 18:59 Intake Total 240 400 Balance 240 400 - Labs Labs: 02/11/18 06:30 02/11/18 06:30 PT 12.0 SECONDS (9.4-12.5) 02/09/18 13:30 INR 1.05 02/09/18 13:30 APTT 39.1 Seconds (25.1-36.5) H 02/09/18 13:30 Attending/Attestation - Attestation I have personally seen and examined this patient.: Yes I have fully participated in the care of the patient.: Yes I have reviewed all pertinent clinical information, including history, physical exam and plan: Yes Notes (Text): Patient seen and examined by me at 10:35AM with resident 02/10/18. Case including HPI, physical exam, and assessment and plan discussed with resident. Agree with above with following additions/corrections. Patient is a 52-year-old female past medical history significant for hypertension and coronary artery disease status post multiple stents that presented to the emergency room with chest pain and associated lightheadedness. Patient states that she is feeling ok. Patient states she wants to shower. Patient states she is going for cardiac catheterization today. No more chest pain. Tingling and numbness in the left arm has resolved. Patient denies any current shortness of breath. No headaches or dizziness. No fevers or chills. No nausea, vomiting, or abdominal pain. No dysuria. Physical exam: Gen: Awake and alert sitting up in bed in no acute distress HEENT: Normocephalic, atraumatic. Extraocular muscles intact, pupils equal reactive. No scleral icterus. Oropharynx is pink and moist. Neck is supple. Cardiovascular: Normal rhythm. Normal S1, S2. No murmurs, rubs, or gallops appreciated Pulmonary: Normal respiratory effort. No rhonchi, rales, or wheezing appreciated. Gastrointestinal: Soft, nontender, non-distended. Positive bowel sounds all 4 quadrants, no guarding. Musculoskeletal: Normal range of motion all extremities. No calf tenderness. Trace lower extremity edema. Central nervous system: AAO x 3. CN 2-12 grossly intact Dermatologic: Skin warm and dry Assessment and plan: Patient is a 52-year-old female past medical history significant for hypertension and coronary artery disease status post multiple stents that presented to the emergency room with chest pain and associated lightheadedness. 1. Unstable angina in a patient with CAD. Rule out ACS. Chest pain resolved. Troponin within normal limits 3. Cardiology consulted, recommendations appreciated. New inverted T-waves on EKG. Patient for cardiac catheterization today. Continue therapeutic Lovenox. Continue aspirin and Plavix. Continue with O2 via nasal cannula as needed. Continue Lipitor and Coreg. Chest x-ray per radiologist shows no interval acute cardiopulmonary disease, mild cardiomegaly again evident without pulmonary vascular congestion. Continue to monitor on telemetry. 2. Hypertension. Continue Coreg. 3. DVT prophylaxis. Lovenox Case was discussed in detail with the patient regarding current diagnosis and treatment plan.
[2018-02-10] MEDS ORDERED: Morphine 2 mg/ml ISec ONE (13:46)
[2018-02-10] MEDS ORDERED: Eptifibatide 20 mg/10mL Inj IVP ONE (13:49)
[2018-02-10] MEDS ORDERED: Sodium Chloride 0.9% 1,000 ML IV SCH (14:30)
--- NOTE | 2018-02-10 15:05 | CARDCATH ---
PROCEDURE DATE: 02/10/2018 HISTORY: The patient is a 52-year-old woman with a history of previous anterior wall myocardial infarction who presents with unstable angina. Her EKG showed new ST-T changes across the anterolateral leads. Because of this, cardiac catheterization was recommended. PROCEDURES: Left heart catheterization with coronary arteriography and left ventriculogram followed by PTCA and stent of an occluded circumflex artery. The right femoral artery was cannulated with a 6-[place] sheath. There were no complications. I performed moderate sedation with an independent trained observer who monitored the patient's physiologic status as well as mental status. After administration of Versed and fentanyl, my intra service time was one hour. The findings on catheterization revealed a left ventricle that contracted normally. Estimated ejection fraction is 55-60%. The patient had a right dominant circulation. The RCA revealed diffuse atherosclerosis without critical lesions. The left main artery revealed intimal irregularities without critical lesions. The LAD revealed a patent stent, which was placed during her acute myocardial infarction. The circumflex artery was subtotally occluded in its proximal portion. of the distal bifurcating circumflex artery was noted. The patient started on intravenous Angiomax on the fluoroscopic guide. The guiding catheter was placed in the ostium of the left main artery. Using multiple wires including Run-through wires and ATW wires, the total occlusion was crossed. A 2 balloon followed by 1.5 balloon was utilized to dilate the total occlusion and into the mid circumflex artery. A 2.25 x 26 mm drug-eluting stent was placed and deployed at 14 atmospheres of pressure. Repeat coronary artery revealed an excellent result with no residual stenosis and DAVIN III flow. The branch point of the obtuse marginal branch which had a 70% stenoses remained patent and provided DAVIN III flow. The patient tolerated the procedure well. Angio-Seal was used to close the femoral artery site. In summary, the procedure was successful with PTCA and stent of a subtotally occluded circumflex artery and stented with drug-eluting stent. Cardiac catheterization reveals the new circumflex occlusion as well as a patent stent in the proximal LAD during her previous acute anterior wall [place]. LV function is preserved with an EF of 55-60%. Given these findings, the patient will need to remain on aspirin and an Effient. The patient is currently on statin therapy. She will need to continue cardiac risk reduction program. Satnam Rowell MD [facility] # [id number]
--- NOTE | 2018-02-10 20:26 | CARD ---
APPROVED REPORT Date of service: 02/10/2018 EKG Measurement Heart [id number] <Conclusion> Sinus bradycardia Left axis deviation Anteroseptal infarct, age undetermined T wave abnormality, consider lateral ischemia Abnormal ECG
[2018-02-11 06:06] VITALS: O2SAT 97
[2018-02-11 07:15] LABS: BASO # 0.01 K/mm3 (0.0-2.0); BASO % 0.1 % (0.0-3.0); EOS # 0.1 (0.0-0.7); EOS % 1.2 % (1.5-5.0); GRAN # 4.07 (1.4-6.5); GRAN % 55.2 % (50.0-68.0); HEMOGLOBIN 13.4 g/dL (12.0-16.0); LYMPH # 2.5 (1.2-3.4); LYMPH % 34.4 % (22.0-35.0); MEAN CELL VOLUME 96.3 fl (80.0-105.0); MEAN CORPUSCULAR HEMOGLOBIN 32.8 pg (25.0-35.0); MEAN CORPUSCULAR HGB CONC 34.1 g/dl (31.0-37.0); MEAN PLATELET VOLUME 10.1 fl (7.0-11.0); MONO # 0.7 (0.1-0.6); MONO % 9.1 % (1.0-6.0); RBC 4.08 10^6/uL (3.5-6.1); WHITE BLOOD COUNT 7.4 10^3/ul (4.5-11.0)
[2018-02-11 07:41] LABS: ALB/GLOB RATIO 1.5 (1.1-1.8); ALBUMIN 3.6 g/dL (3.0-4.8); ALT/SGPT 35 U/L (7-56); AST/SGOT 32 U/L (14-36); BLOOD UREA NITROGEN 11 mg/dL (7-21); CALCIUM 9.6 mg/dL (8.4-10.5); GFR NON-AFRICAN AMERICAN > 60
--- NOTE | 2018-02-11 08:10 | PN ---
DATE: 02/11/2018 CARDIOLOGY FOLLOWUP SUBJECTIVE: The patient is without shortness of breath. PHYSICAL EXAMINATION, : VITAL SIGNS: Blood pressure is 135/89, heart rate is in the 60s. NECK: Negative JVD. LUNGS: Without rales. HEART: Reveals S1, S2. EXTREMITIES: Without edema. The right groin site is stable. LABORATORY DATA: Hemoglobin is 13.4. Chemistries: BUN and creatinine unremarkable. IMPRESSION: 1. Stable post percutaneous transluminal coronary angioplasty and stent of an occluded circumflex artery. 2. Coronary artery disease. 3. History of remote anterior wall myocardial infarction. 4. Hypercholesterolemia. 5. Chest pain. PLAN: Given these findings, the patient is doing well post PTCA and stent. She can be discharged today on aspirin, Effient, statin therapy. We will discontinue her lisinopril, which might be the cause of her dizziness, which has since resolved. Followup and instructions have been given to the patient in detail. Satnam Rowell MD
[2018-02-11] MEDS ORDERED: Pantoprazole 40 mg EC Tab PO SCH (10:00)
[2018-02-11 12:22] VITALS: BP 147/88; PULSE 60; RESP 20; TEMP 97.7
--- NOTE | 2018-02-11 19:17 | CP.PCM.DIS ---
Provider - Provider Date of Admission: 02/09/18 15:23 Attending physician: Mateo Woodruff MD Primary care physician: Lizandro Jamison MD Consults: Cardiology: Dr. Rowell Time Spent in preparation of Discharge (in minutes): 40 Diagnosis - Discharge Diagnosis (1) ACS (acute coronary syndrome) Status: Acute Hospital Course - Lab Results Lab Results: Most Recent Lab Values WBC 7.4 10^3/ul (4.5-11.0) D 02/11/18 06:30 RBC 4.08 10^6/uL (3.5-6.1) 02/11/18 06:30 Hgb 13.4 g/dL (12.0-16.0) 02/11/18 06:30 Hct 39.3 % (36.0-48.0) 02/11/18 06:30 MCV 96.3 fl (80.0-105.0) 02/11/18 06:30 MCH 32.8 pg (25.0-35.0) 02/11/18 06:30 MCHC 34.1 g/dl (31.0-37.0) 02/11/18 06:30 RDW 13.0 % (11.5-14.5) 02/11/18 06:30 Plt Count 216 10^3/uL (120.0-450.0) 02/11/18 06:30 MPV 10.1 fl (7.0-11.0) 02/11/18 06:30 Gran % 55.2 % (50.0-68.0) 02/11/18 06:30 Lymph % (Auto) 34.4 % (22.0-35.0) 02/11/18 06:30 [place] % (Auto) 9.1 % (1.0-6.0) H 02/11/18 06:30 Eos % (Auto) 1.2 % (1.5-5.0) L 02/11/18 06:30 Baso % (Auto) 0.1 % (0.0-3.0) 02/11/18 06:30 Gran # 4.07 (1.4-6.5) 02/11/18 06:30 Lymph # (Auto) 2.5 (1.2-3.4) 02/11/18 06:30 [place] # (Auto) 0.7 (0.1-0.6) H 02/11/18 06:30 Eos # (Auto) 0.1 (0.0-0.7) 02/11/18 06:30 Baso # (Auto) 0.01 K/mm3 (0.0-2.0) 02/11/18 06:30 PT 12.0 SECONDS (9.4-12.5) 02/09/18 13:30 INR 1.05 02/09/18 13:30 APTT 39.1 Seconds (25.1-36.5) H 02/09/18 13:30 Sodium 139 mmol/L (132-148) 02/11/18 06:30 Potassium 4.1 mmol/L (3.6-5.0) 02/11/18 06:30 Chloride 106 mmol/L (98-107) 02/11/18 06:30 Carbon Dioxide 27 mmol/L (21-33) 02/11/18 06:30 Anion Gap 10 (10-20) 02/11/18 06:30 BUN 11 mg/dL (7-21) 02/11/18 06:30 Creatinine 0.6 mg/dl (0.7-1.2) L 02/11/18 06:30 Est GFR ( Amer) > 60 02/11/18 06:30 Est GFR (Non-Af Amer) > 60 02/11/18 06:30 Random Glucose 85 mg/dL (70-110) 02/11/18 06:30 Calcium 9.6 mg/dL (8.4-10.5) 02/11/18 06:30 Phosphorus 4.0 mg/dL (2.5-4.5) 02/09/18 06:00 Magnesium 2.0 mg/dL (1.7-2.2) 02/09/18 06:00 Total Bilirubin 0.5 mg/dL (0.2-1.3) 02/11/18 06:30 AST 32 U/L (14-36) 02/11/18 06:30 ALT 35 U/L (7-56) 02/11/18 06:30 Alkaline Phosphatase 87 U/L (38-126) 02/11/18 06:30 Lactate Dehydrogenase 471 U/L (333-699) 02/08/18 14:58 Total Creatine Kinase 78 U/L (35-230) 02/08/18 14:58 Troponin I < 0.01 ng/mL 02/09/18 06:00 Total Protein 5.9 g/dL (5.8-8.3) 02/11/18 06:30 Albumin 3.6 g/dL (3.0-4.8) 02/11/18 06:30 Globulin 2.4 gm/dL 02/11/18 06:30 Albumin/Globulin Ratio 1.5 (1.1-1.8) 02/11/18 06:30 Triglycerides 119 mg/dL (35-160) 02/09/18 06:00 Cholesterol 143 mg/dL (130-200) 02/09/18 06:00 LDL Cholesterol Direct 68 mg/dL (0-129) 02/09/18 06:00 HDL Cholesterol 64 mg/dL (29-60) H 02/09/18 06:00 - Hospital Course Hospital Course: Brady Chavez, PGY1 Discharge Summary for Dr. Goetz Hospital Admission: Patient is a 52 y/o F with PMHx of HTN, CAD (multiple stents in LAD; last cath on 01/16), PA (5 years ago) who presented to the ED on 02/08 complaining of chest pain with associated lightheadedness. In the ED, patient had a CXR done which was negative for acute cardiopulmonary pathology. Patient had an initial troponin negative x1. Initial EKG was also NSR with no ST elevations or depression. However, given patient's cardiac risk factors (HTN, CAD, PA), medical team evaluated the patient. Patient said her chest pain was associated with lightheadedness. She described the chest pain as a pressure-like pain for which she took aspirin and it improved temporarily. However, the chest pain occurred again and patient was concerned and came to the ED. She was given aspirin and nitroglycerin patch for pain relief but it did no resolve the chest pain. Patient was admitted for unstable angina and to rule out ACS. She was initially started on lovenox anticoagulation. Patient's level of pain improved during her hospital course. Again, since her cardiac risk factors are high, patient was still being observed on telemetry. As per Cardio recs, Dr. Rowell, patient requires cardiac cath. Cardiac cath results on 02/10: RCA has diffuse atherosclerosis but no critical lesions, No critical lesions in left main, Patent stent in the LAD; patient had PTCA done and stenting of subtotally occluded circumflex (drug eluting stents). After cath, patient was asymptomatic with no chest pain, palpitations, shortness of breath, n/v/d. Patient's vital signs are also stable. She is safe for discharge. Upon Discharge: Patient has been cleared by cardiology for discharge. Patient will follow up with her Primary Care Doctor and Travel Counselor after discharge. Patient will no longer take her Lisinopril and Coreg (both are home meds)as per Cardio recommendations. She will resume her other home meds. Case was discussed and reviewed with Attending, Dr. Goetz. Discharge Exam - Head Exam Head Exam: ATRAUMATIC, NORMAL INSPECTION, NORMOCEPHALIC - Eye Exam Eye Exam: EOMI, Normal appearance, PERRL - ENT Exam ENT Exam: Mucous Membranes Moist, Normal Exam - Neck Exam Neck exam: Full Rom - Respiratory Exam Respiratory Exam: NORMAL BREATHING PATTERN, UNREMARKABLE. absent: Rales, Rhonchi, Wheezes - Cardiovascular Exam Cardiovascular Exam: RRR, +S1, +S2. absent: Systolic Murmur - GI/Abdominal Exam GI & Abdominal Exam: Normal Bowel Sounds, Soft, Unremarkable - Extremities Exam Extremities exam: full ROM, normal inspection, pedal pulses present - Back Exam Back exam: NORMAL INSPECTION - Skin Skin Exam: Dry, Intact, Normal Color Discharge Plan - Discharge Medications Prescriptions: Aspirin [Ecotrin] 81 mg PO DAILY #30 tabec Atorvastatin [Lipitor] 40 mg PO DIN #30 tab Prasugrel [Effient] 10 mg PO DAILY #30 tab - Follow Up Plan Condition: FAIR Disposition: HOME/ ROUTINE Instructions: Heart Healthy Diet, Coronary Angioplasty (DC), Coronary Stenting (DC), Chest Pain (DC), Low Salt Diet, Coronary Heart Disease (DC), Coronary Heart Disease in Women Additional Instructions: 1. Please follow up with your Primary Care Doctor within 3-5 days of discharge. 2. Please follow up with your Travel Counselor (Dr. Rowell) within 1 week of discharge. 3. Please resume all your current home medications as prescribed. 4. Please return to the Emergency Department if your symptoms (chest pain, lightheadedness) reoccur. Nursing. Follow up with Dr. Rowell in 3 to 4 weeks. Low salt diet Do not take Lisinopril , Do not take Coreg ,medication. If you begin to experience chest pain, shortness breath, or any changes return to the emergency room or call 911. See care notes provided for further instructions including groin care, Referrals: Lizandro Jamison MD [Primary Care Provider] - Satnam Rowell MD [Staff Provider] -
== END 2018-02-11 13:11 | disposition home or self-care (01) | DRG 247 ==
LOC: ED 14:28 → ERH 16:05 → 2RNO 17:06 → OBSVTOIN 02-09 15:23 → 2RSO 02-10 14:32
PROVIDERS: ADMIT Internal Medicine; ATTEND Internal Medicine
PROC: 027034Z Dilation of Coronary Artery, One Artery with Drug-eluting Intraluminal Device, Percutaneous Approach (ICD-10-PCS; principal; 2018-02-10)
PROC: 4A023N7 Measurement of Cardiac Sampling and Pressure, Left Heart, Percutaneous Approach (ICD-10-PCS; 2018-02-10)
PROC: B2151ZZ Fluoroscopy of Left Heart using Low Osmolar Contrast (ICD-10-PCS; 2018-02-10)
PROC: B2111ZZ Fluoroscopy of Multiple Coronary Arteries using Low Osmolar Contrast (ICD-10-PCS; 2018-02-10)
DX: I25.110 Atherosclerotic heart disease of native coronary artery with unstable angina pectoris (principal); I11.0 Hypertensive heart disease with heart failure; I50.9 Heart failure, unspecified; E78.00 Pure hypercholesterolemia, unspecified; I25.82 Chronic total occlusion of coronary artery; I25.2 Old myocardial infarction; Z79.02 Long term (current) use of antithrombotics/antiplatelets; Z79.82 Long term (current) use of aspirin; Z87.891 Personal history of nicotine dependence; Z95.5 Presence of coronary angioplasty implant and graft

== ENCOUNTER 2018-03-18 06:38 | Day surgery (SDC) | payer BC ==
[2018-03-17 12:48] VITALS: BMI 28.5
[2018-03-18 07:14] LABS: BASO # 0.03 K/mm3 (0.0-2.0); BASO % 0.5 % (0.0-3.0); EOS # 0.2 (0.0-0.7); EOS % 2.9 % (1.5-5.0); GRAN # 2.2 (1.4-6.5); HEMOGLOBIN 14.4 g/dL (12.0-16.0); LYMPH # 3.4 (1.2-3.4); LYMPH % 54.1 % (22.0-35.0); MEAN CORPUSCULAR HEMOGLOBIN 33.4 pg (25.0-35.0); MEAN CORPUSCULAR HGB CONC 34.4 g/dl (31.0-37.0); MEAN PLATELET VOLUME 9.8 fl (7.0-11.0); MONO # 0.5 (0.1-0.6); MONO % 7.5 % (1.0-6.0); RBC 4.31 10^6/uL (3.5-6.1); WHITE BLOOD COUNT 6.3 10^3/ul (4.5-11.0)
[2018-03-18 07:23] LABS: BLOOD UREA NITROGEN 20 mg/dL (7-21); CALCIUM 9.6 mg/dL (8.4-10.5); GFR NON-AFRICAN AMERICAN > 60; HDL CHOLESTEROL 77 mg/dL (29-60)
[2018-03-18 07:27] LABS: INR 0.97; PARTIAL THROMBOPLASTIN TIME 29.9 Seconds (25.1-36.5); PROTHROMBIN TIME 11.2 SECONDS (9.4-12.5)
[2018-03-18 07:34] LABS: LDL CHOLESTEROL 75 mg/dL (0-129)
[2018-03-18] MEDS ORDERED: Iodixanol 320 MG/ML 200 ML BOTTLE IV ONE (08:15)
[2018-03-18] MEDS ORDERED: Iohexol 350mgl/ml 50 ML ONE (08:15)
[2018-03-18] MEDS ORDERED: Iodixanol 320 MG/ML 100 ML BOTTLE IV ONE (08:15)
[2018-03-18] MEDS ORDERED: Lidocaine 2% PF (10 ml) Amp ONE (08:15)
[2018-03-18] MEDS ORDERED: Midazolam 2 MG/2 ML VIAL ONE ×3 (08:24→08:59)
[2018-03-18] MEDS ORDERED: Sodium Chloride 0.9% 1,000 ML IV SCH (09:30)
[2018-03-18 10:00] VITALS: RESP 18; TEMP 98
--- NOTE | 2018-03-18 10:48 | CARDCATH ---
PROCEDURE DATE: 03/18/2018 HISTORY: The patient is a 53-year-old woman with history of an old anterior wall myocardial infarction and recent PTCA and stent of an occluded circumflex artery, who presents with recurrence of anginal symptoms during exercise. The patient's cardiac risk factors include a strong family history for CAD as well as hypercholesterolemia. The patient is compliant with medications. Because of her ongoing symptoms, repeat catheterization was recommended. PROCEDURE: Left heart catheterization with coronary arteriography and left ventriculogram. The right femoral artery was cannulated with a 6-[place]ine[place] sheath. There were no complications. I performed moderate sedation which included the presence of an independent trained observer that assisted in monitoring the patient's consciousness and physiologic status. After administration of Versed and fentanyl, my intra service time was 15 minutes. The findings on catheterization revealed a left ventricle that was preserved with an estimated ejection fraction of 50-55%. Her coronary anatomy was right dominant circulation. The RCA revealed diffuse atherosclerosis without critical lesions. The left main artery was unremarkable. The LAD and diagonal vessels revealed intimal irregularities without critical lesions. The stent in the proximal/mid LAD is patent. The circumflex artery which was occluded in its previous catheterization revealed a patent stent in its proximal portion extending into the obtuse marginal branch. The AV groove branch at the area of the stent was patent and revealed a 50% ostial stenoses. Manual compression was used to close the left femoral artery site. The patient tolerated the procedure well. In summary, the procedure revealed of multivessel CAD with patent stents in the LAD, circumflex artery, as well as 50% stenoses in the takeoff of the AV groove branch after the stent in the obtuse marginal branch. LV function is preserved with an EF of approximately 55%. Given these findings, the patient's treatment, we will continue medical therapy. Her new onset of symptoms are not ischemic or cardiac related. The patient will need to continue her cardiac risk reduction program. Satnam Rowell MD
[2018-03-18 11:40] VITALS: O2SAT 96
[2018-03-18 17:44] VITALS: BP 135/76; PULSE 69
== END 2018-03-18 16:00 | disposition home or self-care (01) ==
LOC: CATH 06:38
PROVIDERS: ATTEND Internal Medicine Cardiovascular Disease
DX: I25.119 Atherosclerotic heart disease of native coronary artery with unspecified angina pectoris (principal); I25.2 Old myocardial infarction; E78.00 Pure hypercholesterolemia, unspecified; I11.0 Hypertensive heart disease with heart failure; I50.9 Heart failure, unspecified; Z87.891 Personal history of nicotine dependence; Z95.5 Presence of coronary angioplasty implant and graft
CPT/HCPCS: 36415; 80048; 80061; 85025; 85610; 85730; 86850; 86900; 93458; 99152; 99153; C1769; C2629; J1644; J2250; J3010; J7030; J7040; Q9966

== ENCOUNTER 2018-06-18 20:03 | Emergency (ER) | payer BC ==
[2018-06-18 20:04] VITALS: BMI 28.5
[2018-06-18 20:21] VITALS: RESP 18; TEMP 98.1
[2018-06-18 20:35] LABS: BASO # 0.01 K/mm3 (0.0-2.0); BASO % 0.1 % (0.0-3.0); EOS # 0.2 (0.0-0.7); EOS % 1.9 % (1.5-5.0); GRAN # 3.09 (1.4-6.5); GRAN % 36.8 % (50.0-68.0); HEMOGLOBIN 15.1 g/dL (12.0-16.0); LYMPH # 4.6 (1.2-3.4); LYMPH % 54.7 % (22.0-35.0); MEAN CELL VOLUME 96.1 fl (80.0-105.0); MEAN CORPUSCULAR HGB CONC 34.3 g/dl (31.0-37.0); MEAN PLATELET VOLUME 9.9 fl (7.0-11.0); MONO # 0.6 (0.1-0.6); MONO % 6.5 % (1.0-6.0); RBC 4.58 10^6/uL (3.5-6.1); RED CELL DISTRIBUTION WIDTH 12.9 % (11.5-14.5); WHITE BLOOD COUNT 8.4 10^3/uL (4.5-11.0)
[2018-06-18 20:42] LABS: INR 0.97; PROTHROMBIN TIME 11.1 SECONDS (9.4-12.5)
[2018-06-18 20:45] LABS: BLOOD UREA NITROGEN 18 mg/dL (7-21); GFR NON-AFRICAN AMERICAN > 60
[2018-06-18 20:46] LABS: ALB/GLOB RATIO 1.5 (1.1-1.8); ALBUMIN 4.6 g/dL (3.0-4.8); ALT/SGPT 39 U/L (7-56); AST/SGOT 34 U/L (14-36); CALCIUM 9.7 mg/dL (8.4-10.5)
--- NOTE | 2018-06-18 20:55 | ED PDOC ---
Arrival/HPI - General Chief Complaint: Chest Pain Time Seen by Provider: 06/18/18 20:14 Historian: Patient - History of Present Illness Narrative History of Present Illness (Text): 06/18/18 20:52 53-year-old female with past medical history of a total of 4 cardiac stent last was placed in Jan, reports intermittent dull pressure right sternal chest discomfort since this morning, which lasts for a few minutes. Otherwise: (-) r adiation, (-) diaphoresis, (-) dyspnea, (-) pleuritic component, (-) ripping or tearing quality, (-) positional component, (-) exertional component, (-) dizziness, (-) syncope, (-) nausea, (-) vomiting, (-) calf swelling/pain, (-) neuro deficits. Patient states that her first 2 stents were placed in 2012, then another 1 in 2014. PMD : Mutterperl Cardio : Rowell Past Medical History - Infectious Disease Hx of Infectious Diseases: None - Reproductive Menopause: Yes - Cardiac Hx Pacemaker: No - Pulmonary Hx Respiratory Disorders: No - Neurological Hx Paralysis: No - HEENT Hx HEENT Disorder: No - Renal Hx Renal Disorder: No - Endocrine/Metabolic Hx Endocrine Disorders: No - Hematological/Oncological Hx Blood Transfusions: No - Integumentary Hx Dermatological Disorder: No - Musculoskeletal/Rheumatological Hx Musculoskeletal Disorders: No - Gastrointestinal Hx Gastrointestinal Disorders: No - Genitourinary/Gynecological Hx Genitourinary Disorders: (dense breasts) - Psychiatric Hx Emotional Abuse: No Hx Physical Abuse: No Hx Substance Use: No - Past Surgical History Past Surgical History: No Previous - Surgical History Hx Cardiac Catheterization: Yes (01/24/13) Hx Coronary Stent: Yes (x2 01/24/13) Other/Comment: Gastric sleeve surgery approximately 1 year ago. - Anesthesia Hx Anesthesia Reactions: No Hx Malignant Hyperthermia: No - Suicidal Assessment Feels Threatened In Home Enviroment: No Family/Social History Family/Social History: No Known Family HX Smoking Status: Never Smoked Hx Alcohol Use: No Hx Substance Use: No Hx Substance Use Treatment: No Allergies/Home Meds Allergies/Adverse Reactions: Allergies coconut Allergy (Severe, Verified 06/18/18 20:10) ANGIOEDEMA meperidine HCl [From Demerol] Allergy (Severe, Verified 06/18/18 20:10) RASH oxycodone HCl [From Percocet] Allergy (Severe, Verified 06/18/18 20:10) RASH strawberry Allergy (Severe, Verified 06/18/18 20:10) ANGIOEDEMA Home Medications: Home Meds Medication Instructions Recorded Confirmed Lansoprazole [Prevacid] 30 mg PO DAILY 01/02/17 06/18/18 Review of Systems - Review of Systems Constitutional: absent: Fatigue, Fevers Respiratory: absent: SOB, Cough Cardiovascular: Chest Pain. absent: Palpitations, Edema Gastrointestinal: absent: Abdominal Pain, Nausea, Vomiting Musculoskeletal: absent: Arthralgias, Back Pain, Neck Pain Skin: absent: Rash, Pruritis, Skin Lesions Neurological: absent: Headache, Dizziness Physical Exam Vital Signs Temp Pulse Resp BP Pulse Ox 06/18/18 20:17 98.1 F 76 18 162/96 H 98 Temperature: Afebrile Blood Pressure: Hypertensive Pulse: Regular Respiratory Rate: Normal Appearance: Positive for: Well-Appearing, Non-Toxic, Comfortable Pain Distress: None Mental Status: Positive for: Alert and Oriented X 3 - Systems Exam Head: Present: Atraumatic, Normocephalic Pupils: Present: PERRL Extroacular Muscles: Present: EOMI Conjunctiva: Present: Normal Mouth: Present: Moist Mucous Membranes Neck: Present: Normal Range of Motion Respiratory/Chest: Present: Clear to Auscultation, Good Air Exchange. No: Respiratory Distress, Accessory Muscle Use Cardiovascular: Present: Regular Rate and Rhythm, Normal S1, S2. No: Murmurs Abdomen: No: Tenderness, Distention, Peritoneal Signs Back: Present: Normal Inspection Upper Extremity: Present: Normal Inspection. No: Cyanosis, Edema Lower Extremity: Present: Normal Inspection. No: Edema Neurological: Present: GCS=15, CN II-XII Intact, Speech Normal Skin: Present: Warm, Dry, Normal Color. No: Rashes Psychiatric: Present: Alert, Oriented x 3, Normal Insight, Normal Concentration Medical Decision Making ED Course and Treatment: 06/18/18 20:54 Plan: -- Labs -- IV -- wardrobe consultant -- EKG -- CXR -- Asa PO -- Reassess and disposition EKG: NSR at 74 bpm, LAD, (-) acute ST changes, as read by [facility]. CXR : NAD, as read by [facility] Labs reviewed and wnl, including negative trop. On reevaluation, patient reports improvement of symptoms, denies any CP, back pain, or SOB. On exam, patient remains awake alert and oriented 3 in no acute distress. Results d/w the patient. Patient states that she wants to go home, patient advised that because of her past medical history and her current symptoms today, it is to her best interest to stay in the hospital for o bservation, which the patient is refusing at this time, she is adamant about going home. States that she can call her PMD and hand therapist tomorrow. Patient refuses further care, observation and treatment in the hospital. Patient informed of the reasons for the following and planned treatment, which patient understands, however still refuses. Patient informed of the risk and benefits of treatment. Informed that the risk could include worsening of current conditions, undiagnosed conditions, disability or even . Patient understands the following risk and the benefits of treatment. Patient has the capacity to make decisions and still refuses treatment by RN, PA and ER MD. Patient encouraged to return to the ER at any time and to follow up with pmd. - Lab Interpretations Lab Results: PT 11.1 SECONDS (9.4-12.5) 06/18/18 20:29 INR 0.97 06/18/18 20:29 APTT 29.0 Seconds (25.1-36.5) 06/18/18 20:29 Total Bilirubin 0.4 mg/dL (0.2-1.3) 06/18/18 20:29 AST 34 U/L (14-36) 06/18/18 20:29 ALT 39 U/L (7-56) 06/18/18 20:29 Alkaline Phosphatase 93 U/L (38-126) 06/18/18 20:29 Total Protein 7.6 g/dL (5.8-8.3) 06/18/18 20:29 Albumin 4.6 g/dL (3.0-4.8) 06/18/18 20:29 Globulin 3.0 gm/dL 06/18/18 20:29 Albumin/Globulin Ratio 1.5 (1.1-1.8) 06/18/18 20:29 - RAD Interpretation Radiology Orders: 06/18/18 20:22 CHEST PORTABLE [RAD] Stat - Medication Orders Current Medication Orders: Discontinued Medications Aspirin (Aspirin) 325 mg PO STAT STA Stop: 06/18/18 20:23 Last Admin: 06/18/18 20:38 Dose: 325 mg - PA / CERTIFIED MEDICAL TRANSCRIPTIONIST / Resident Statement / has reviewed & agrees with the documentation as recorded. Disposition/Present on Arrival - Present on Arrival Any Indicators Present on Arrival: No History of DVT/PE: No History of Uncontrolled Diabetes: No Urinary Catheter: No History of Decub. Ulcer: No History Surgical Site Infection Following: None - Disposition Have Diagnosis and Disposition been Completed?: Yes Diagnosis: Chest pain Disposition: AGAINST MEDICAL ADVICE Disposition Time: 21:30 Patient Plan: Other (Patient wishes to leave AMA) Condition: UNKNOWN Discharge Instructions (ExitCare): Chest Pain (ED), Leaving Against Medical Advice Additional Instructions: Thank you for letting us take care of you today. You were treated for chest pain. You are choosing to leave against medical advice. The emergency medical care you received today was directed at your acute symptoms. Return to the Emergency Department if your symptoms worsen, do not improve, or if you have any other problems. Please contact your doctor and hand therapist in 1-2 days for re-evaluation and follow up. Bring any paperwork you were given at discharge with you along with any medications you are taking to your follow up visit. Our treatment cannot replace ongoing medical care by a primary care provider (PCP) outside of the emergency department. Thank you for allowing the [facility] team to be part of your care today. If you had an X-Ray : A Radiologist will review the ED reading if any change in treatment is needed we will contact you. Referrals: Lizandro Jamison MD [Primary Care Provider] - Follow up with primary Forms: [employer] ([place])
[2018-06-18 20:56] LABS: TROPONIN I < 0.01 ng/mL
[2018-06-19 00:12] VITALS: BP 145/84; PULSE 74; O2SAT 100
--- NOTE | 2018-06-19 09:27 | CARD ---
APPROVED REPORT Date of service: 06/18/2018 EKG Measurement Heart [id number] <Conclusion> Normal sinus rhythm Possible Left atrial enlargement Left axis deviation Incomplete right bundle branch block Anteroseptal infarct, age undetermined Abnormal ECG
--- NOTE | 2018-06-19 09:56 | RAD ---
Date of service: 06/18/2018 HISTORY: CP COMPARISON: 02/08/2018 FINDINGS: LUNGS: No active pulmonary disease. PLEURA: No significant pleural effusion identified, no pneumothorax apparent. CARDIOVASCULAR: No aortic atherosclerotic calcification present. Normal cardiac size. No pulmonary vascular congestion. OSSEOUS STRUCTURES: No significant abnormalities. VISUALIZED UPPER ABDOMEN: Normal. OTHER FINDINGS: None. IMPRESSION: No active disease.
== END 2018-06-18 21:30 | disposition left against medical advice (07) ==
LOC: ED 20:03
DX: R07.9 Chest pain, unspecified (principal); Z95.5 Presence of coronary angioplasty implant and graft

== ENCOUNTER 2018-06-25 07:05 | Outpatient (CLI) | payer BC | END 2018-06-25 07:06 | disposition home or self-care (01) | LOC: RAD 07:05 ==

== ENCOUNTER 2018-06-29 06:29 | Outpatient (CLI) | payer BC | END 2018-06-29 06:30 | disposition home or self-care (01) | LOC: CARDIO 06:29 | DX: I25.10 Atherosclerotic heart disease of native coronary artery without angina pectoris (principal); I10 Essential (primary) hypertension; I25.2 Old myocardial infarction; Z79.82 Long term (current) use of aspirin; Z79.899 Other long term (current) drug therapy; Z95.5 Presence of coronary angioplasty implant and graft ==

== ENCOUNTER 2018-07-02 06:28 | Day surgery (SDC) | payer BC ==
[2018-07-01 12:35] VITALS: BMI 29.9
[2018-07-02] MEDS ORDERED: Nitroglycerin 50mg in D5W 0 MG/0 ML BOTTLE IV ONE (06:49)
[2018-07-02] MEDS ORDERED: Iodixanol 320 MG/ML 200 ML BOTTLE IV ONE (06:49)
[2018-07-02] MEDS ORDERED: Lidocaine 2% Inj (20ml) ONE (06:49)
[2018-07-02] MEDS ORDERED: Phenylephrine 10 mg/ml Inj ONE (06:49)
[2018-07-02] MEDS ORDERED: Iohexol 350mgl/ml 50 ML ONE (06:49)
[2018-07-02] MEDS ORDERED: Iodixanol 320 MG/ML 100 ML BOTTLE IV ONE (06:49)
[2018-07-02 07:41] LABS: BASO # 0.01 K/mm3 (0.0-2.0); BASO % 0.2 % (0.0-3.0); EOS # 0.1 (0.0-0.7); EOS % 1.8 % (1.5-5.0); HEMOGLOBIN 14.9 g/dL (12.0-16.0); LYMPH # 2.6 (1.2-3.4); LYMPH % 41.7 % (22.0-35.0); MEAN CELL VOLUME 95.6 fl (80.0-105.0); MEAN CORPUSCULAR HEMOGLOBIN 32.5 pg (25.0-35.0); MEAN CORPUSCULAR HGB CONC 33.9 g/dl (31.0-37.0); MEAN PLATELET VOLUME 9.9 fl (7.0-11.0); MONO # 0.4 (0.1-0.6); MONO % 6.4 % (1.0-6.0); RBC 4.59 10^6/uL (3.5-6.1); RED CELL DISTRIBUTION WIDTH 13.1 % (11.5-14.5); WHITE BLOOD COUNT 6.2 10^3/uL (4.5-11.0)
[2018-07-02 07:50] LABS: BLOOD UREA NITROGEN 17 mg/dL (7-21); CALCIUM 9.7 mg/dL (8.4-10.5); GFR NON-AFRICAN AMERICAN > 60; HDL CHOLESTEROL 80 mg/dL (29-60); INR 1.02; PARTIAL THROMBOPLASTIN TIME 34.1 Seconds (26.9-38.3); PROTHROMBIN TIME 11.5 SECONDS (9.4-12.5)
[2018-07-02 08:00] LABS: LDL CHOLESTEROL 74 mg/dL (0-129)
[2018-07-02] MEDS ORDERED: Midazolam 2 MG/2 ML VIAL ONE ×2 (08:31→08:38)
[2018-07-02] MEDS ORDERED: Sodium Chloride 0.9% 1,000 ML IV SCH (09:15)
[2018-07-02 09:23] VITALS: RESP 18
[2018-07-02 10:22] VITALS: TEMP 97.6
--- NOTE | 2018-07-02 12:31 | CARDCATH ---
PROCEDURE DATE: 07/02/2018 HISTORY: The patient is a 53-year-old woman with a history of an anterior wall myocardial infarction who presents with a stress test that was abnormal as well as a drop in her ejection fraction. Because of this, cardiac catheterization was recommended. PROCEDURE: Left heart catheterization with coronary arteriography and left ventriculogram with aortic root injection. The right femoral artery was cannulated with a 6-[place] sheath. There were no complications. I performed moderate sedation which included the presence of an independent trained observer that assisted in monitoring the patient's level of consciousness and physiologic status. After administration of Versed and fentanyl, my intra-service time was 15 minutes. The findings on catheterization revealed a right dominant circulation. The RCA revealed diffuse atherosclerosis without critical lesions. The left main artery was unremarkable. The LAD and diagonal vessels revealed intimal irregularities with a patent stent noted. No critical lesions were noted. The circumflex artery revealed a patent stent in its midportion. That extended into the obtuse marginal branch. At the takeoff of the circumflex artery in the midportion after the obtuse marginal branch and at the stent site, there is a 50% stenosis noted. The left ventriculogram was performed in the HAWLEY projection. In the HAWLEY projection, the anterior apical segment was hypokinetic. Estimated ejection fraction is 50% to 55%. Supra-aortic valvular injection revealed no aortic insufficiency. Angio-Seal was used to close the femoral artery site. The patient tolerated the procedure well. In summary, the procedure revealed segmental wall motion abnormalities of the anterior and apical segment from her previous myocardial infarction. Estimated ejection fraction is 50% to 55%. There is no change in her ejection fraction from her previous catheterization. Patent stents in the LAD and circumflex artery. Single-vessel CAD with a 50% stenosis of the circumflex artery at the takeoff of the stent site. Given these findings, the patient's treatment will be continued medical therapy. Continue cardiac risk reduction program would be appropriate. Satnam Rowell MD
[2018-07-02 12:54] VITALS: O2SAT 94
[2018-07-02 15:16] VITALS: BP 132/80; PULSE 68
== END 2018-07-02 15:05 | disposition home or self-care (01) ==
LOC: SDSVAS 06:28
PROVIDERS: ATTEND Internal Medicine Cardiovascular Disease
DX: I25.10 Atherosclerotic heart disease of native coronary artery without angina pectoris (principal); I25.2 Old myocardial infarction
CPT/HCPCS: 36415; 80048; 80061; 85025; 85610; 85730; 86850; 86900; 93458; 93567; 99152; C1760; C1769; C2629; J1644; J2250; J3010; J7030; Q9966; Q9967

== ENCOUNTER 2018-08-12 07:02 | Outpatient (CLI) | payer BC | END 2018-08-12 07:03 | disposition home or self-care (01) | LOC: LAB 07:02 ==

== ENCOUNTER 2018-08-29 08:17 | Outpatient (CLI) | payer BC | END 2018-08-29 08:18 | disposition home or self-care (01) | LOC: RAD 08:17 ==